=== PATIENT | male | born 1960 | race Caucasian/White ===

== ENCOUNTER → 2017-11-30 15:47 | Outpatient (CLI) | payer BC, SELFPAY ==
[2017-11-30 17:38] LABS: Volume,Semen 1.8 ml (2.0-5.0)
[2017-11-30 17:39] LABS: Motility Quality Moderate Progression (Mod-Rapid); PH,Semen 8.5 (7.3-8.3); Semen Viscosity Normal (Normal); Sperm Count 11 mil/mm3 (20-160); Sperm Motility 30 % (50-90); WBCs,Semen Small
[2017-11-30 18:35] LABS: Sperm Morphology Head Abnormality (Normal)
[2017-11-30 19:10] LABS: 3Hr Motility Quality Moderate Progression (Mod-Rapid); 3Hr Sperm Motility 10 % (50-60)
== END ==
PROVIDERS: PCP Family Medicine; Visit Provider Obstetrics & Gynecology
DX: Z31.41 Encounter for fertility testing (principal)
CPT/HCPCS: 89320

== ENCOUNTER → 2018-01-08 13:17 | Outpatient (CLI) | payer BC, SELFPAY ==
[2018-01-08 15:27] LABS: Prostate Specific Ag Screen 1.3 ng/mL (0.0-4.0)
[2018-01-09 08:30] LABS: LH 5.1 mIU/mL (1.7-8.6)
[2018-01-09 14:21] LABS: Prolactin 5.7 ng/mL (4.0-15.2)
[2018-01-11 14:59] LABS: Testosterone, Total, LC/MS 375.5 ng/dL (264.0-916.0); Testosterone,Free 3.3 pg/mL (7.2-24.0)
== END ==
PROVIDERS: Visit Provider Urology
DX: Z12.5 Encounter for screening for malignant neoplasm of prostate (principal); N40.0 Benign prostatic hyperplasia without lower urinary tract symptoms
CPT/HCPCS: 36415; 83001; 83002; 84146; 84402; 84403; G0103

== ENCOUNTER → 2019-06-05 09:01 | Outpatient (CLI) | payer BC, SELFPAY ==
--- NOTE | 2019-06-05 09:10 | XR_ITS ---
PROCEDURE: XR FOOT WT BEARING LT 3V CLINICAL INDICATION: post-op Follow-up surgery COMPARISON: XR FOOT LT MIN 3V from 05/04/2019 XR FOOT LT 2V from 05/08/2019 XR FOOT LT MIN 3V from 05/08/2019 FINDINGS: Status post ORIF 5th metatarsal fracture with lateral bone plate. There is good alignment of the fracture fragments with no significant displacement. The joint spaces are well-preserved. No significant degenerative/arthritic changes. No erosive changes evident. Other findings:None. IMPRESSION: Good alignment status post ORIF 5th metatarsal fracture Dictated by: Peter Torrez MD 06/05/2019 12:57 Electronically signed by Peter Torrez MD in [place] 06/05/2019 12:57
== END ==
PROVIDERS: PCP Family Medicine; Visit Provider Podiatrist
DX: Z98.890 Other specified postprocedural states (principal); S92.352D Displaced fracture of fifth metatarsal bone, left foot, subsequent encounter for fracture with routine healing; S92.902D Unspecified fracture of left foot, subsequent encounter for fracture with routine healing
CPT/HCPCS: 73630

== ENCOUNTER 2019-06-24 09:50 | Outpatient (RCR) | payer BC, SELFPAY ==
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
== END 2019-06-24 10:50 | disposition home or self-care (01) ==
LOC: PT 09:50
PROVIDERS: PCP Family Medicine; Visit Provider Podiatrist
DX: S92.352A Displaced fracture of fifth metatarsal bone, left foot, initial encounter for closed fracture (principal); Z98.890 Other specified postprocedural states
CPT/HCPCS: 97163

== ENCOUNTER → 2019-06-26 08:46 | Outpatient (CLI) | payer BC, SELFPAY ==
--- NOTE | 2019-06-26 08:54 | XR_ITS ---
PROCEDURE: XR FOOT WT BEARING LT 3V CLINICAL INDICATION: postop views, fracture follow up Follow-up fracture/ORIF COMPARISON: XR FOOT LT MIN 3V from 05/04/2019 XR FOOT LT 2V from 05/08/2019 XR FOOT LT MIN 3V from 05/08/2019 XR FOOT WT BEARING LT 3V from 06/05/2019 FINDINGS: Status post ORIF 5th metatarsal fracture with lateral bone plate transfixed with screws and 2 cerclage wires with good alignment of the fracture fragments. Fracture line is still visible. IMPRESSION: Good alignment status post ORIF 5th metatarsal fracture Dictated by: Peter Torrez MD 06/26/2019 09:30 Electronically signed by Peter Torrez MD in [place] 06/26/2019 09:30
== END ==
PROVIDERS: PCP Family Medicine; Visit Provider Podiatrist
DX: S92.902D Unspecified fracture of left foot, subsequent encounter for fracture with routine healing (principal); Z98.890 Other specified postprocedural states
CPT/HCPCS: 73630

== ENCOUNTER 2019-08-05 15:49 | Emergency (ER) | payer BC, SELFPAY ==
[2019-08-05 16:13] VITALS: BP 116/76; PULSE 57; RESP 16; TEMP 36.9; O2SAT 99; BMI 25.0
[2019-08-05 16:33] VITALS: BP 127/91; PULSE 58; RESP 18; TEMP 36.9; O2SAT 99; BMI 25.0
--- NOTE | 2019-08-05 16:42 | CT_ITS ---
PROCEDURE: CT HEAD/BRAIN WO CON CLINICAL INDICATION: lightheaded, confusion when reading earlier today COMPARISON: No exams were available for comparison TECHNIQUE: Axial images obtained. All CT scans at the facility use one or more dose reduction, viz: automated exposure control, ma/kV adjustment per patient size (including targeted exams where dose is matched to indication, i.e. head), or iterative reconstruction technique. FINDINGS: No midline shift, mass effect, intracranial hemorrhage, hydrocephalus, or extra-axial fluid collection is evident. There are scattered periventricular and subcortical areas of decreased attenuation consistent with ischemic gliotic change from microvascular disease. The calvarium has an unremarkable appearance. No mastoid effusion. No sinus air-fluid level. IMPRESSION: No acute intracranial finding Dictated by: Peter Torrez MD 08/05/2019 17:30 Electronically signed by Peter Torrez MD in [place] 08/05/2019 17:30
--- NOTE | 2019-08-05 16:42 | ECG_ITS ---
APPROVED REPORT Exam: Resting ECG HR:57 bpm ECG Measurements Heart Rate 57 AXES ID 144 P 26 QRSd 82 QRS 18 QT 422 T 37 QTc 410 <Conclusion> Sinus bradycardia Otherwise normal ECG Electronically signed by : J Carlos Hwang, 08/11/2019 17:16:44
[2019-08-05 17:09] LABS: Microscopic, Urine URINE MICROSCOPIC (MICROSCOPIC)
[2019-08-05 17:11] LABS: Appearance,Urine CLEAR (Clear); Bilirubin,Urine Negative (Negative); Blood, Urine Negative (Negative); Color,Urine YELLOW (Yellow); Glucose,Urine (UA) Negative (Negative); Ketones,Urine Negative (Negative); Leukocyte Esterase,Urine Negative (Negative); Nitrate,Urine Negative (Negative); Protein,Urine Negative (Negative); Urobilinogen,Urine 0.2 EU/dl (0.2)
[2019-08-05 17:14] LABS: Squamous Epithelial Cell,Urine Occasional #/hpf (0-5); WBC,Urine Occasional #/hpf (0-3)
[2019-08-05 17:16] LABS: Bacteria,Urine Trace /lpf
[2019-08-05 17:20] VITALS: BP 123/78; PULSE 55; RESP 20; O2SAT 99
[2019-08-05 17:26] LABS: Basophils % 0.5 % (0.1-2.0); Eosinophils # 0.2 K/mm3 (0.0-0.4); Lymphocytes # 2.1 K/mm3 (0.7-4.5); Lymphocytes % 34.5 % (10-50); Mean Corpuscular HGB Conc 34.9 g/dL (31.8-35.4); Mean Corpuscular Hemoglobin 31.7 pg (27.0-31.2); Mean Corpuscular Volume 90.7 fl (80-94); Mean Platelet Volume 7.5 fl (7.4-10.4); Monocytes # 0.6 K/mm3 (0.1-1.0); Monocytes % 8.9 % (1.7-9.3); Neutrophils # 3.3 K/mm3 (1.8-7.8); Neutrophils % 53.1 % (37.0-80.0); Platelet Count 234 K/mm3 (142-424); Red Blood Count 4.74 M/mm3 (4.60-6.20); Red Cell Distribution Width 13.6 % (11.5-17.5); White Blood Count 6.1 K/mm3 (4.8-10.8)
[2019-08-05 17:31] LABS: Chloride 102 mmol/L (98-107); Potassium 4.6 mmoL/L (3.5-5.1); Sodium 138 mmol/L (136-145)
[2019-08-05 17:33] LABS: Alanine Aminotransferase 20 U/L (12-78); Aspartate Amino Transferase 28 U/L (17-59); Blood Urea Nitrogen 11 mg/dl (9-20); Creatinine Clearance Estimated 97 mL/min (50-200); Estimated Glomerular Filt Rate 86 ml/min (>60); GFR (African American) 104 ML/MIN (>60)
[2019-08-05 17:34] LABS: Albumin Level 4.4 g/dl (3.5-5.0); Albumin/Globulin Ratio 1.5 (1.1-1.8); Alkaline Phosphatase 74 U/L (38-126); Anion Gap 9.6 mEq/L (5-15); Bilirubin,Total 0.7 mg/dl (0.2-1.3); Calcium 9.2 mg/dl (8.4-10.2); Carbon Dioxide 31 mmol/L (22.0-30.0); Globulin 2.9 g/dL (1.3-3.2); Glucose 97 mg/dl (74-100); Total Protein,Serum 7.3 g/dl (6.3-8.2)
[2019-08-05 17:58] LABS: Troponin I < 0.01 ng/ml (0.00-0.034)
--- NOTE | 2019-08-05 18:44 | HMH.EDDIZZ ---
ED Disposition Clinical Impression: Episodic lightheadedness, Palpitations, Sinusitis, acute maxillary Disposition: Home, Self-Care Condition on Discharge: Good Instructions: Sinusitis Additional Instructions: Please follow-up with Dr. Carter to get an outpatient stress test done in the next week. Prescriptions: Amoxicillin [Amoxicillin 875MG Tab] 875 mg PO Q12H 10 Days #20 tab Transmission Status: Pending to [facility]/pharmacy #[id number] Fluticasone Propionate [Flonase 50mcg nasal spray 16gm] 1 spr NS BID 30 Days #60 bottle Transmission Status: Pending to [facility]/pharmacy #[id number] methylPREDNISolone [Medrol 4mg tab] 4 mg PO DIRECTED #21 tab Transmission Status: Pending to [facility]/pharmacy #[id number] Referrals: J Carlos Carter MD [Primary Care Provider] - - Critical Care Critical Care Time: No Attestation: On 08/05/19, the high probability of a clinically significant, sudden or life threatening deterioration of the following system(s) required my full and direct attention, intervention and personal management. The time I documented below is in addition to time spent performing reported procedures but includes the following listed in this critical care notation. Medical Decision Making - Medical Records Medical records reviewed: Yes: I reviewed the patient's medical records. - Charlie Inquiry Pt receiving controlled substance: No Vital Signs: 08/05/19 16:13 08/05/19 16:33 08/05/19 17:20 Temperature 98.4 F 98.4 F Temperature Source Oral Oral Pulse Rate [Right Brachial] 57 L 58 L 55 L Respiratory Rate 16 18 20 Blood Pressure [Right Arm] 116/76 127/91 H 123/78 Blood Pressure Mean [Right Arm] 89 103 93 Blood Pressure Source [Right Arm] Automatic Cuff Automatic Cuff Automatic Cuff Blood Pressure Position [Right Arm] Sitting Sitting Sitting 02 Sat by Pulse Oximetry 99 99 99 Oxygen Delivery Method Room Air Room Air Room Air - Lab Data Lab results reviewed: Yes: I reviewed the patient's lab results. Lab Results 08/05/19 16:45: Urine Color Yellow, Urine Appearance Clear, Urine pH 6.0, Ur Specific [place] 1.010, Urine Protein Negative, Urine Glucose (UA) Negative, Urine Ketones Negative, Urine Blood Negative, Urine Nitrate Negative, Urine Bilirubin Negative, Urine Urobilinogen 0.2, Ur Leukocyte Esterase Negative, Urine WBC Occasional, Ur Squamous Epith Cells Occasional, Urine Bacteria Trace 08/05/19 17:15: WBC 6.1, RBC 4.74, Hgb 15.0, Hct 43.0, MCV 90.7, MCH 31.7 H, MCHC 34.9, RDW 13.6, Plt Count 234, MPV 7.5, Neut % (Auto) 53.1, Lymph % (Auto) 34.5, [place] % (Auto) 8.9, Eos % (Auto) 3.0, Baso % (Auto) 0.5, Neut # (Auto) 3.3, Lymph # (Auto) 2.1, [place] # (Auto) 0.6, Eos # (Auto) 0.2, Baso # (Auto) 0.0 08/05/19 17:15: Sodium 138, Potassium 4.6, Chloride 102, Carbon Dioxide 31 H, Anion Gap 9.6, BUN 11, Creatinine 0.90, Estimated Creat Clear 97, Estimated GFR 86, Est GFR ( Amer) 104, Glucose 97, Calcium 9.2, Total Bilirubin 0.7, AST 28, ALT 20, Alkaline Phosphatase 74, Troponin I < 0.01, Total Protein 7.3, Albumin 4.4, Globulin 2.9, Albumin/Globulin Ratio 1.5 Result diagrams: 08/05/19 17:15 08/05/19 17:15 Orders (Tests/Meds): ORDERS Category Date Time Status Troponin I Q3H Lab 08/05/19 19:45 Ordered Troponin I Q3H Lab 08/05/19 22:45 Ordered - Radiology Data #1 Image(s): Chest Preliminary Findings: Normal/NAD - CT Data CT Scan: Head Time Received: 18:[address] Reviewed: Yes: I have viewed the radiologist's interpretation Preliminary Findings: Normal/NAD - ECG Data Tracing #1 I reviewed this ECG and interpreted as documented below: Normal Sinus Rhythm: Yes Medical Decision Narrative: Strongly feel that patient does have an acute maxillary sinusitis given the fact he had poor transillumination of the sinuses and pain upon palpation. This would explain possibly the lightheadedness and a sense of not wellbeing. Given the fact his CT of his head and chest x-ray cardiac enzymes CBC and CMP and
[2019-08-05 18:46] VITALS: BP 122/82; PULSE 56; RESP 18; O2SAT 100
[2019-08-05 19:01] VITALS: BP 134/78; PULSE 79; RESP 16; TEMP 36.7; O2SAT 98
== END 2019-08-05 19:01 | disposition home or self-care (01) ==
LOC: UTC 15:51 → ER 16:21
PROVIDERS: Emergency Provider Family Medicine; PCP Family Medicine
DX: J01.00 Acute maxillary sinusitis, unspecified (principal); I10 Essential (primary) hypertension; K51.90 Ulcerative colitis, unspecified, without complications; Z79.899 Other long term (current) drug therapy; Z87.891 Personal history of nicotine dependence
CPT/HCPCS: 70450; 80053; 81001; 84484; 85025; 93005; 99284

== ENCOUNTER → 2019-08-07 08:55 | Outpatient (CLI) | payer BC, SELFPAY ==
--- NOTE | 2019-08-07 08:56 | XR_ITS ---
PROCEDURE: XR FOOT WT BEARING LT 3V CLINICAL INDICATION: postop view, fracture f/u Follow-up fracture COMPARISON: XR FOOT LT 2V from 05/08/2019 XR FOOT LT MIN 3V from 05/08/2019 XR FOOT WT BEARING LT 3V from 06/05/2019 XR FOOT WT BEARING LT 3V from 06/26/2019 FINDINGS: Post ORIF 5th metatarsal fracture with lateral bone plate and 2 cerclage wires. Fracture line is less visible consistent with healing. There is good alignment with no other significant anomalies. The joint spaces are well-preserved. No significant degenerative/arthritic changes. No erosive changes evident. Other findings:None. IMPRESSION: Good alignment status post ORIF 5th metatarsal fracture Dictated by: Peter Torrez MD 08/07/2019 15:52 Electronically signed by Peter Torrez MD in [place] 08/07/2019 15:52
== END ==
PROVIDERS: PCP Family Medicine; Visit Provider Podiatrist
DX: Z98.890 Other specified postprocedural states (principal); S92.352D Displaced fracture of fifth metatarsal bone, left foot, subsequent encounter for fracture with routine healing
CPT/HCPCS: 73630

== ENCOUNTER → 2019-09-03 06:09 | Outpatient (CLI) | payer BC, SELFPAY ==
--- NOTE | 2019-09-03 | CA_ITS ---
APPROVED REPORT Exam: Exercise Treadmill Technologist: Sera Rothman Ht: 5 ft 10 in Wt: 170 lbs BSA: 1.95 m2 HR: 48 bpm BP: 140/76 mmHg Indications: Syncope, Palpitations Medical History Medications: FluTICASONE,,,,, MethylpredNISOLONE,,,,, MesALAMINE,,,,, Stress Test Details Test: Demetrius HR Resting HR: 54 bpm Max Heart Rate (APMHR): 159 bpm Max HR Achieved: 152 bpm Target HR (85% APMHR): 135 bpm % of APMHR: 95 Recovery HR: 71 bpm BP Resting BP: 140.0/76.0 mmHg Max BP: 165.0/75.0 mmHg Recovery BP: 133.0/88.0 mmHg ECG Clinical Exercise duration: 11:00 min Highest Stage Achieved: Exercise capacity: 12.8 METs Stress ECG Conclusion Resting ECG: Marked sinus bradycardia, otherwise normal Patient exercised 11:00 on Demetrius Protocol. Test stopped due to shortness of air, fatigue. Symptoms: No chest pain. Arrhythmias/Ectopy: Occasional PAC. Frequent PVCs. Frequent multi-focal ventricular ectopy over 10 second period in stage 4 with ventricular triplets, couplets and 4 beat evert of ventricular tachycardia. ST-T Changes: Allowing for motion artifact, the ST response to exercise appears within normal. Conclusion: Short nonsustained runs of ventricular tachycardia in stage 4. No ischemic changes or chest pain. Myoview images reported separately. Electronically signed by : Mannie Valerio, 09/04/2019 12:14:16
--- NOTE | 2019-09-03 | NM_ITS ---
APPROVED REPORT Exam: Nuclear Stress Test Indication: Palpitations, Syncope, Fatigue, Former tobacco use Patient Location: Outpatient Stress Tech: Sera Rothman NM Tech:Loreto To, ARRT, RT (R)(N) Ht: 5 ft 10 in Wt: 170 lbs HR: 48 bpm BP: 140/76 mmHg BSA: 1.95 m2 BMI: 24.3 History: Palpitations, Syncope, Fatigue, Former tobacco use Procedure: Patient exercised on Demetrius protocol 11:00 minutes and sec, resting heart rate 48 bpm, resting blood pressure 140/76 mmHg, with exercise maximum heart rate achived was 152 bpm which is Greater than 85 % of the maximum predicted heart rate and blood pressure was 165/75 mmHg. Test was stopped due to SOA and fatigue. Patient has Good exercise capacity, achieved 12.8 METs of workload on treadmill, the blood pressure response to exercise was Adequate. Electrocardiogram Resting electrocardiogram shows sinus rhythm, with exercise there is less than 1.[address] segment depression noted from the baseline EKG, 4 beat run of nonsustained VT seen at stage IV of the exercise patient was asymptomatic with this. The EKG portion of the exercise Myoview is negative for ischemia. Cardiac Stress and Resting SPECT Images: Cardiac Stress and Resting SPECT images were obtained using technetium 99m Myoview 29.6 mCi stress and 10.28 mCi at rest. Gated SPECT for the analysis of segmental wall motion and calculation of the ejection fraction also done. Cardiac stress and resting SPECT images show a mild fixed defect anteroapically with normal contractility gated SPECT is likely secondary to soft tissue attenuation, no reversible ischemia seen, computer derived ejection fraction is 60% with no regional wall motion abnormality, right ventricle is normal size and contractility. Conclusion: 1. The EKG portion of the exercise Myoview is negative for ischemia, patient has good exercise capacity achieved 12.8 mets of workload on treadmill, the blood pressure response to exercise was adequate, there was no exercise-induced chest discomfort. Patient has nonsustained VT in stage IV of exercise stress test with no symptoms. 2. No scintigraphic evidence of reversible ischemia seen, computer derived ejection fraction is 60% with no regional wall motion abnormality, right ventricle is normal size and contractility. 3. Likely normal exercise Myoview study. Electronically signed by : Mannie Valerio, 09/04/2019 13:30:24
--- NOTE | 2019-09-03 07:09 | HMH.ITSHM ---
Current Home Medications as stated by this patient Venus Ferrer or patient access representative. []MULTIVITAMIN MESALOMANE VITAMIN D3 VITAMIN B12 VITAMIN C
--- NOTE | 2019-09-03 08:57 | CA_ITS ---
APPROVED REPORT Table Assembler Metal: WILBER Laterality: Bilateral Indications: syncope, dizziness Doppler Spectral Velocity Analysis ECA (R) 105.90/19.30 cm/s ECA (L) 76.40/18.60 cm/s dICA (R) 85.70/40.50 cm/s dICA (L) 66.80/29.50 cm/s [place] (R) 88.60/43.30 cm/s [place] (L) 89.90/44.30 cm/s pICA (R) 97.00/43.70 cm/s pICA (L) 69.30/30.20 cm/s dCCA (R) 71.90/23.80 cm/s dCCA (L) 72.60/24.40 cm/s pCCA (R) 96.30/27.60 cm/s pCCA (L) 123.30/41.40 cm/s Vert (R) 59.10/25.00 cm/s Vert (L) 46.20/21.20 cm/s ICA/CCA 1.35 ICA/CCA 1.24 Findings Duplex evaluation demonstrates stenosis of the right proximal internal carotid artery <20% with PSV <140 cm/sec, EDV <100 cm/sec, and IC/CC Ratio <4.0.Duplex evaluation demonstrates stenosis of the left proximal internal carotid artery <20% with PSV <140 cm/sec, EDV <100 cm/sec, and IC/CC Ratio <4.0. Conclusion Duplex evaluation demonstrates stenosis of the right proximal internal carotid artery <20% with PSV <140 cm/sec, EDV <100 cm/sec, and IC/CC Ratio <4.0.Duplex evaluation demonstrates stenosis of the left proximal internal carotid artery <20% with PSV <140 cm/sec, EDV <100 cm/sec, and IC/CC Ratio <4.0. Electronically signed by : Lu Horne, 09/04/2019 09:00:21
== END ==
PROVIDERS: PCP Family Medicine; Visit Provider Family Medicine
DX: R55 Syncope and collapse (principal); G90.01 Carotid sinus syncope
CPT/HCPCS: 78452; 93017; 93880; A9502

== ENCOUNTER → 2019-09-06 09:34 | Outpatient (CLI) | payer BC, SELFPAY | PROVIDERS: PCP Family Medicine; Referring Provider Family Medicine; Visit Provider Family Medicine | DX: I47.2 Ventricular tachycardia (principal) | CPT/HCPCS: 93270 ==

== ENCOUNTER → 2019-09-23 14:03 | Outpatient (CLI) | payer BC, SELFPAY ==
--- NOTE | 2019-09-23 | CA_ITS ---
APPROVED REPORT EXAM: Comprehensive 2D, Doppler, and color-flow Echocardiogram [employer] Tower: Mercedes Moya CRT Ht: 5 ft 10 in Wt: 170lbs BSA: 1.95 BP: 120/80 mmHg Indications: Palpitations 2D Dimensions LVOT 2.09 cm (M/F) 1.5-2.5 M-Mode Dimensions RVDd 3.07 cm (0.9-2.6) LVDd 5.14 cm (3.5-5.7) LVDs 3.07 cm (3.5-5.7) IVSd 1.54 cm (0.6-1.1) PWd 0.86 cm (0.6-1.1) EF (Teich) 70.70% FS 40.30% EDV (Teich) 126.10 mL ESV (Teich) 37.00 mL LV Diastology E/A Ratio 0.76 Mitral Valve MV A Velocity 71.00 (40-130 cm/s) Left Ventricle Left atrium is mildly enlarged, left ventricle is normal size, left ventricle wall thickness is upper limit of the normal, there is preserved left ventricular systolic function, visually estimated ejection fraction 55% with no regional wall motion abnormality, grade 1 diastolic dysfunction seen without tissue Doppler evidence of raise left atrial pressure. Right Ventricle Right atrium and right ventricular relatively normal size and function. Aortic Valve Aortic valve is minimally thickened and fibrosed. There is no aortic stenosis or aortic insufficiency. Mitral Valve Mitral valve is grossly normal, there is mild mitral regurgitation. Tricuspid Valve Tricuspid valve is grossly normal, there is mild tricuspid regurgitation, tricuspid regurgitation jet velocity is inadequate for calculation of the right ventricular systolic pressure. Pulmonic Valve Pulmonic valve is poorly visualized. Great Vessels Aortic root is normal size. Pericardium No significant pericardial effusion noted. Conclusion 1. Normal left ventricular size, preserved left ventricular systolic function, visually estimated ejection fraction 55% with no regional wall motion abnormality, grade 1 diastolic dysfunction seen without tissue Doppler evidence of raise left atrial pressure. 2. Mild mitral and tricuspid regurgitation. 3. No significant pericardial effusion noted. Electronically signed by : Mannie Valerio, 09/24/2019 05:47:00
== END ==
PROVIDERS: PCP Family Medicine; Visit Provider Nurse Practitioner
DX: R00.2 Palpitations (principal); G90.01 Carotid sinus syncope
CPT/HCPCS: 93306

== ENCOUNTER → 2019-10-23 16:11 | Outpatient (CLI) | payer BC, SELFPAY ==
--- NOTE | 2019-10-23 | XR_ITS ---
PROCEDURE: XR CHEST PORTABLE CLINICAL HISTORY: Covid positive COMPARISON: PA and lateral chest 07/16/2013 FINDINGS: The cardiomediastinal silhouette and pulmonary vascularity are within normal limits. The lungs are clear without infiltrates, suspicious nodules, or pleural effusions. No acute bony abnormalities. There is minor degenerate change of both AC joints. There is slightly high-riding humeral heads bilaterally and there are bilateral down-sloping acromion processes suggesting predisposition to impingement syndrome. IMPRESSION: No acute findings. Dictated by: Dr. Donnie Erwin MD 10/24/2019 09:41 Dr. Donnie Erwin MD in [place] 10/24/2019 09:41
[2019-10-23 16:51] LABS: Basophils # 0.1 K/mm3 (0-0.2); Basophils % 1.9 % (0.1-2.0); Eosinophils % 0.6 % (0.1-12.0); Hematocrit 43.1 % (42.0-52.0); Hemoglobin 15.4 g/dL (14.1-18.0); Lymphocytes # 0.7 K/mm3 (0.7-4.5); Lymphocytes % 11.8 % (10-50); Mean Corpuscular HGB Conc 35.8 g/dL (31.8-35.4); Mean Corpuscular Hemoglobin 31.5 pg (27.0-31.2); Mean Platelet Volume 7.4 fl (7.4-10.4); Monocytes # 0.8 K/mm3 (0.1-1.0); Monocytes % 13.8 % (1.7-9.3); Neutrophils % 71.9 % (37.0-80.0); Platelet Count 205 K/mm3 (142-424); Red Cell Distribution Width 13.7 % (11.5-17.5); White Blood Count 5.6 K/mm3 (4.8-10.8)
[2019-10-26 13:14] LABS: Covid-19 Nasal PCR Sendout Lex POSITIVE
== END ==
PROVIDERS: PCP Family Medicine; Visit Provider Family Medicine
DX: Z20.828 Contact with and (suspected) exposure to other viral communicable diseases (principal); U07.1 COVID-19
CPT/HCPCS: 36415; 71045; 85025; U0004

== ENCOUNTER 2019-11-15 09:05 | Emergency (ER) | payer BC, SELFPAY ==
[2019-11-15 09:15] VITALS: BP 155/91; PULSE 52; RESP 18; TEMP 36.4; O2SAT 100; BMI 25.1
--- NOTE | 2019-11-15 09:32 | CT_ITS ---
Procedure: CT ABDOMEN PELVIS WO CON Referring Doctor: Pankaj Phelan Patient Age:59Y CLINICAL INDICATION: R flank and R lower abd pain With nausea vomiting diarrhea. Symptoms started 2 hours ago COMPARISON: No exams were available for comparison TECHNIQUE: Helical axial images obtained with sagittal and coronal reformats.. No oral nor IV contrast utilized all CT scans at the facility use one or more dose reduction, viz: automated exposure control, ma/kV adjustment per patient size (including targeted exams where dose is matched to indication, i.e. head), or iterative reconstruction technique. FINDINGS: Lower thorax: No acute finding lung bases clear. Heart normal size. Small hiatal hernia noted tract RIGHT OBSTRUCTIVE UROPATHY right hydronephrosis with dilated ureter down right ureteral stone to the right of L4.. This stone projected just below the right transverse process of L4 vertebral body on packaging line attendant view. It measures just over 6 mm transverse dimension x 4 mm AP X 6.5 mm height (coronal image 38 axial image 51) There is moderate dilatation of the ureter above this with some [id number] hydronephrosis and stranding about the right ureter reflecting the obstructive uropathy and pelvicaliceal backflow. This periureteral stranding along the adjacent IVC. Slight stranding extends towards the head of the pancreas-but I favor this stranding at the head of the pancreas most likely is related the right ureteral obstructive process in periureteral stranding. Nonetheless, warrants correlation with amylase and lipase with this observation. Right kidney: Also contains a 2 mm nonobstructive calculus at upper pole and mildly hyperdense renal pyramids which can reflect tendency to form stones. . Small renal cyst 12 mm cyst exophytic cyst off the upper pole left kidney with a smaller 1 cm cyst off the anterior aspect upper pole sagittal image 32 Left kidney.: Nonobstructive near mm X 3 mm calculus midportion left kidney and question of a tiny 1 mm calculus at the lower pole calyx coronal image 43 There is also 12 mm cyst seen towards upper pole left kidney fluid density (axial image 27 coronal image 48) -----abdomen -------- Liver: No masses. No biliary dilatation. Gallbladder: Nondistended. No radio opaque stones. Common duct unremarkable Pancreas: No masses. Spleen: unremarkable Adrenals: unremarkable Kidneys/ureters: unremarkable PELVIS: Prostate slightly enlarged 5.2 cm diameter with some central calcifications Bladder: Nondistended. No obvious stones or masses. Upper normal wall thickness No free fluid. Suggestion of some laxity inguinal ring bilaterally with slight generous fat tracking along inguinal canal bilaterally but but no bowel loops. GI tract: ------ Small hiatal hernia noted Proximal Small Bowel Loops are slightly dilated. The most evident dilated proximal small bowel loop just to the left of midline below the stomach measure up to 34 mm diameter.. (Coronal image 15. And also seen on packaging line attendant view.) I suspect this reflects a localized ileus but again there is some subtle stranding in the proximal mesenteric and retroperitoneal which warrants correlation with amylase and lipase. A in the distal small bowel there is some stool-like material which in this setting again likely reflect mild ileus with some impaired peristalsis. Large bowel.. Moderate stool throughout the colon most evident at the descending colon... Upper normal wall thickness at the right colon most likely reflects lack of distension appendix visualized. No appendicitis. Minimal radiopaque within appendix reflecting barium or small appendiculith Peritoneum: No abnorm
--- NOTE | 2019-11-15 09:34 | PC.NURSE ---
pt reports unable to void at this time
--- NOTE | 2019-11-15 09:34 | HMH.EDGENADL ---
ED Disposition Clinical Impression: Ureterolithiasis Disposition: Home, Self-Care Condition on Discharge: Fair Instructions: DI for Acute Pain -- Adult Prescriptions: Hydrocodone/Acetaminophen [Hydrocodone-Acetamin 5-325 mg] 1 each PO Q6HP PRN #12 tab PRN Reason: pain Prescription Printed Tamsulosin HCl 0.4 mg PO DAILY #14 cap Transmission Status: Pending to [facility]/pharmacy #[id number] Referrals: J Carlos Carter MD [Primary Care Provider] - - Critical Care Critical Care Time: No Attestation: On 11/15/19, the high probability of a clinically significant, sudden or life threatening deterioration of the following system(s) required my full and direct attention, intervention and personal management. The time I documented below is in addition to time spent performing reported procedures but includes the following listed in this critical care notation. Medical Decision Making - Medical Records Medical records reviewed: Yes: I reviewed the patient's medical records. - Charlie Inquiry Pt receiving controlled substance: Yes Charlie was queried for this patient: Yes Reference #:: [id number] Risks and benefits of using a controlled substance: were discussed with pt by me Vital Signs: 11/15/19 09:15 11/15/19 09:56 11/15/19 10:26 Temperature 97.5 F L Temperature Source Oral Pulse Rate [Right Radial] 52 L 47 L 44 L Respiratory Rate 18 18 Blood Pressure [Right Arm] 155/91 H 143/73 H 128/62 Blood Pressure Mean [Right Arm] 112 96 84 Blood Pressure Source [Right Arm] Automatic Cuff Automatic Cuff Blood Pressure Position [Right Arm] Sitting Sitting Sitting 02 Sat by Pulse Oximetry 100 100 Oxygen Delivery Method Room Air Room Air 11/15/19 10:30 Temperature Temperature Source Pulse Rate [Right Radial] 41 L Respiratory Rate 18 Blood Pressure [Right Arm] 128/62 Blood Pressure Mean [Right Arm] 84 Blood Pressure Source [Right Arm] Automatic Cuff Blood Pressure Position [Right Arm] Sitting 02 Sat by Pulse Oximetry 99 Oxygen Delivery Method - Lab Data Lab Results 11/15/19 09:25: WBC 4.9, RBC 5.01, Hgb 15.0, Hct 45.9, MCV 91.6, MCH 29.9, MCHC 32.6, RDW 13.3, Plt Count 293, MPV 7.6, Neut % (Auto) 47.8, Lymph % (Auto) 39.4, [place] % (Auto) 9.6 H, Eos % (Auto) 2.7, Baso % (Auto) 0.5, Neut # (Auto) 2.4, Lymph # (Auto) 1.9, [place] # (Auto) 0.5, Eos # (Auto) 0.1, Baso # (Auto) 0.0 11/15/19 09:25: Sodium 141, Potassium 4.4, Chloride 105, Carbon Dioxide 26, Anion Gap 14.4, BUN 15, Creatinine 0.90, Estimated Creat Clear 85, Estimated GFR 86, Est GFR ( Amer) 104, Glucose 138 H, Calcium 9.3, Total Bilirubin 0.6, AST 33, ALT 29, Alkaline Phosphatase 88, Total Protein 7.3, Albumin 4.7, Globulin 2.6, Albumin/Globulin Ratio 1.8 11/15/19 09:25: Lipase 197 Result diagrams: 11/15/19 09:25 11/15/19 09:25 Orders (Tests/Meds): ED MEDICATIONS Generic Name Dose Route Start Last Admin Trade Name Freq PRN Reason Stop Dose Admin Sodium Chloride 1,000 mls @ 999 mls/hr 11/15/19 09:45 11/15/19 09:34 Sod Chlor 0.9% 1000ml Bag IV 11/15/19 10:45 999 mls/hr .Q1H1M CELSO Administration Discontinued Medications Generic Name Dose Route Start Last Admin Trade Name Freq PRN Reason Stop Dose Admin Hydromorphone HCl 0.5 mg 11/15/19 10:44 11/15/19 10:45 Hydromorphone 2mg/Ml Syringe IV 11/15/19 10:45 0.5 mg ONCE ONE Administration Ketorolac Tromethamine 30 mg 11/15/19 09:32 11/15/19 09:34 Ketorolac 30mg/Ml Vial IV 11/15/19 09:33 30 mg ONCE ONE Administration Morphine Sulfate 4 mg 11/15/19 10:17 11/15/19 10:19 Morphine 4mg/Ml Syringe IV 11/15/19 10:18 4 mg ONCE ONE Administration Ondansetron HCl 4 mg 11/15/19 09:32 11/15/19 09:34 Ondansetron 4mg/2ml Vial IV 11/15/19 09:33 4 mg ONCE ONE Administration Ondansetron HCl 4 mg 11/15/19 09:41 11/15/19 09:42 Ondansetron 4mg/2ml Vial IV 11/15/19 09:42 4 mg ONCE ONE Administration Promethazine HCl 12.5 mg 11/15/19 10:19 11/14
[2019-11-15 09:38] LABS: Basophils % 0.5 % (0.1-2.0); Eosinophils # 0.1 K/mm3 (0.0-0.4); Eosinophils % 2.7 % (0.1-12.0); Hematocrit 45.9 % (42.0-52.0); Lymphocytes # 1.9 K/mm3 (0.7-4.5); Lymphocytes % 39.4 % (10-50); Mean Corpuscular HGB Conc 32.6 g/dL (31.8-35.4); Mean Corpuscular Hemoglobin 29.9 pg (27.0-31.2); Mean Corpuscular Volume 91.6 fl (80-94); Mean Platelet Volume 7.6 fl (7.4-10.4); Monocytes # 0.5 K/mm3 (0.1-1.0); Monocytes % 9.6 % (1.7-9.3); Neutrophils # 2.4 K/mm3 (1.8-7.8); Neutrophils % 47.8 % (37.0-80.0); Platelet Count 293 K/mm3 (142-424); Red Blood Count 5.01 M/mm3 (4.60-6.20); Red Cell Distribution Width 13.3 % (11.5-17.5); White Blood Count 4.9 K/mm3 (4.8-10.8)
[2019-11-15 09:40] LABS: Chloride 105 mmol/L (98-107); Potassium 4.4 mmoL/L (3.5-5.1); Sodium 141 mmol/L (136-145)
[2019-11-15 09:43] LABS: Alanine Aminotransferase 29 U/L (12-78); Albumin Level 4.7 g/dl (3.5-5.0); Albumin/Globulin Ratio 1.8 (1.1-1.8); Alkaline Phosphatase 88 U/L (38-126); Anion Gap 14.4 mEq/L (5-15); Aspartate Amino Transferase 33 U/L (17-59); Bilirubin,Total 0.6 mg/dl (0.2-1.3); Blood Urea Nitrogen 15 mg/dl (9-20); Calcium 9.3 mg/dl (8.4-10.2); Carbon Dioxide 26 mmol/L (22.0-30.0); Creatinine Clearance Estimated 85 mL/min (50-200); Estimated Glomerular Filt Rate 86 ml/min (>60); GFR (African American) 104 ML/MIN (>60); Globulin 2.6 g/dL (1.3-3.2); Glucose 138 mg/dl (74-100); Lipase 197 U/L (23-300); Total Protein,Serum 7.3 g/dl (6.3-8.2)
[2019-11-15 09:56] VITALS: BP 143/73; PULSE 47; RESP 18; O2SAT 100
--- NOTE | 2019-11-15 10:16 | PC.NURSE ---
pt return from CT
[2019-11-15 10:26] VITALS: BP 128/62; PULSE 44
[2019-11-15 10:30] VITALS: BP 128/62; PULSE 41; RESP 18; O2SAT 99
[2019-11-15 11:07] VITALS: BP 97/54; PULSE 52; PULSE 53; RESP 17; RESP 18; TEMP 36.4; O2SAT 99
== END 2019-11-15 11:13 | disposition home or self-care (01) ==
PROVIDERS: Emergency Provider Emergency Medicine; PCP Family Medicine
DX: N20.1 Calculus of ureter (principal); Z79.899 Other long term (current) drug therapy; Z87.891 Personal history of nicotine dependence
CPT/HCPCS: 74176; 80053; 83690; 85025; 96365; 96375; 96376; 99283; J2405

== ENCOUNTER → 2019-12-03 08:24 | Outpatient (CLI) | payer BC, SELFPAY ==
--- NOTE | 2019-12-03 08:24 | CT_ITS ---
PROCEDURE: CT CHEST WO CON CLINICAL INDICATION: recent covid Former smoker COMPARISON: CR XR CHEST PORTABLE from 10/23/2019 TECHNIQUE: Axial images obtained with sagittal and coronal reformats. All CT scans at the facility use one or more dose reduction, viz: automated exposure control, ma/kV adjustment per patient size (including targeted exams where dose is matched to indication, i.e. head), or iterative reconstruction technique. FINDINGS: HEART AND MEDIASTINAL STRUCTURES: Unremarkable except for mild coronary artery calcification. LUNGS AND PLEURAL SPACES: The lung ledesma are somewhat hyperexpanded and appear clear of infiltrate. There is no pleural fluid. There are calcified subcarinal nodes. BONY STRUCTURES: No acute bony abnormalities apparent. There are mild multilevel degenerate changes upper and midthoracic spine. UPPER ABDOMEN: There are 2 tiny nodular lesions arising from upper pole right kidney probably representing small complex or and/or hemorrhagic cysts, the largest measures 1 cm in size the other 0.5 cm. ADDITIONAL FINDINGS: No other significant abnormalities. IMPRESSION: Mild COPD, no acute cardiopulmonary disease seen Dictated by: Dr. Donnie Erwin MD 12/03/2019 09:23 Dr. Donnie Erwin MD in [place] 12/03/2019 09:23
== END ==
PROVIDERS: PCP Family Medicine; Visit Provider Internal Medicine Cardiovascular Disease
DX: Z86.19 Personal history of other infectious and parasitic diseases (principal)
CPT/HCPCS: 71250

== ENCOUNTER → 2020-01-21 10:04 | Outpatient (CLI) | payer BC, SELFPAY ==
[2020-01-21 12:25] LABS: Coronavirus 19 IgG Antibody Positive (Negative); Coronavirus 19 IgM Antibody Negative (Negative)
== END ==
PROVIDERS: Visit Provider Internal Medicine Gastroenterology
DX: Z01.818 Encounter for other preprocedural examination (principal)
CPT/HCPCS: 36415; 86328

== ENCOUNTER 2020-01-23 06:56 | Day surgery (SDC) | payer BC, SELFPAY ==
[2020-01-20 08:51] VITALS: BMI 24.3
[2020-01-23 07:15] VITALS: BP 112/69; PULSE 65; RESP 18; TEMP 36.3; O2SAT 98
--- NOTE | 2020-01-23 07:35 | HMH.ANESCL ---
[facility] Anesthesia Checklist - Patient Identification Patient Identification: Arm Band, Verbal (Name & ) - Structural Data Admitted From: Home Planned Operative Procedure/s: Colonoscopy Consent for Planned Operative Procedure(s) Verified: Yes Verified Documents: Surgical Consent, History and Physical - NPO Status Verified Time NPO: 00:00 - Chart Verification Results Verified: None - Additional verifications Anesthesia Reactions: No Hx Blood Transfusions: No Blood Transfusion Reaction: No - Airway Assessment C-Spine Mobility Assessed: Yes TMJ Mobility Assessed: Yes Dentition: Good Dentition - Neurological Assessment Level of Consciousness: Awake, Alert, Appropriate, Follows Commands Hx Seizures: No Numbness or tingling in extremities: No - Anesthesia Plan Anesthesia Risk discussed: Yes Anesthesia Plan: Verified ASA Class: II Anesthesia Type: MAC [facility] History I have reviewed the patient's past medical history: Yes Medical History: Reports:: Arrhythmia, Hyperlipidemia, Hypertension, Kidney Stones Denies:: Cancer, Diabetes Mellitus Type 1, Diabetes Mellitus Type 2, Internal Pacemaker, MRSA, Seizures *Have you ever received a pneumonia vaccine?: No *Have you received a flu vaccine this season?: Yes Other Medical History: Reports: Other. Denies: Blood Transfusion Reaction Comment:: ulercative colits Anesthesia experience/problems:: None Other Surgeries: Yes: Colonoscopy. No: Pacemaker Amputation: No Fractures: Yes - *Social History Last grade of school completed: Advanced degree Smoking Status: Former smoker Tobacco Type: cigarettes # Packs/Day (cigarettes): 1 #Yrs smoked (if former smoker): 40 Alcohol Intake: never Substance Use Type: denies use, other *Occupational Status:: retired Housing: house Household Members: spouse *Travel in the last 8 weeks: None Family Hx:: Stroke
--- NOTE | 2020-01-23 08:08 | HMH.PROC ---
[facility] Procedure Note Procedure Note:: Colonoscopy Procedure Report: Colonoscopy with cold biopsies Endoscopist: Mj Woo II, MD Referring physician: J Carlos Carter MD Date of Procedure: January 23, 2020 Equipment: Olympus 180 variable stiffness pediatric colonoscope Sedation: MAC sedation Indication: Mr. Ferrer is a 59-year-old gentleman who is here for follow-up screening colonoscopy. He does have a history of ulcerative colitis diagnosed in 1980. He has been seen by me in the past but more recently had been followed by the [facility]. He had a colonoscopy there 3 years ago and reportedly this was normal. The patient did have a flareup a couple of years ago with tenesmus, blood and mucus. He reports no abdominal pain. He does take mesalamine (formerly Apriso) and take 0.375 milligrams capsules by mouth twice daily. He reports no abdominal pain, weight loss or diarrhea. He does see a little blood occasionally. He reports no family history of colon cancer or colitis or Crohn's disease. He does take a probiotic (align). Procedure: Prior to the procedure, a history and physical exam was performed, and patient's medications and allergies were reviewed. The risks, benefits and alternatives of the sedation and procedure were discussed with the patient. All questions were answered and informed consent was obtained. The patient was brought to the procedure room. Patient identification and proposed procedure were verified by the physician and the nurse. The patient was placed in a left lateral decubitus position and the scope was passed under direct vision. Throughout the procedure, the patient's blood pressure, pulse, and oxygen saturations were monitored continuously. The colonoscopy was accomplished without difficulty. The patient tolerated the procedure well. Findings: On digital rectal examination there was normal rectal tone. There were no external hemorrhoids. The colonoscope was introduced through the anal canal to the rectum and advanced to the cecum. The ileocecal valve and appendiceal orifice were identified. The scope was advanced a short distance into the ileum which appeared grossly normal. The scope was then withdrawn into the colon. The cecum, ascending, transverse, descending and sigmoid colon were normal with no mucosal abnormalities identified. Most of the rectum was normal. There may have been some very minimal low-grade proctitis of the distal 2 to 3 cm of rectum. Cold biopsies were obtained from the distal rectum. Upon retroflexion within the rectum there were grade 1 internal hemorrhoids.The preparation was excellent throughout with [place] Preparation Score of 9. The cecal time was 12 minutes. Impression: 1. 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 I would continue maintenance therapy with mesalamine. I would recommend surveillance in 5 years. I would consider adding some bulk fiber supplementation. He will continue probiotic therapy.
[2020-01-23 08:09] VITALS: O2SAT 97
[2020-01-23 08:26] VITALS: BP 103/64; PULSE 58; RESP 16; TEMP 36.2; O2SAT 97
[2020-01-23 08:36] VITALS: BP 118/70; PULSE 66; RESP 16; O2SAT 97
[2020-01-23 08:46] VITALS: BP 123/69; PULSE 74; RESP 16; O2SAT 99
[2020-01-23 08:56] VITALS: BP 121/69; PULSE 52; RESP 16; O2SAT 99
== END 2020-01-23 08:56 | disposition home or self-care (01) ==
LOC: OUTP 06:57
PROVIDERS: PCP Family Medicine; Visit Provider Internal Medicine Gastroenterology
PROC: 0DJD8ZZ Inspection of Lower Intestinal Tract, Via Natural or Artificial Opening Endoscopic (ICD-10-PCS; CPT 45378; principal; 2020-01-23 08:00)
DX: Z12.11 Encounter for screening for malignant neoplasm of colon (principal); K51.20 Ulcerative (chronic) proctitis without complications; Z87.19 Personal history of other diseases of the digestive system; E78.5 Hyperlipidemia, unspecified; I10 Essential (primary) hypertension
CPT/HCPCS: 45380

== ENCOUNTER → 2020-03-15 13:22 | Outpatient (POV) | payer BC, SELFPAY | PROVIDERS: Visit Provider Nurse Practitioner Family | DX: Z00.00 Encounter for general adult medical examination without abnormal findings (principal) ==

== ENCOUNTER → 2020-04-02 15:38 | Outpatient (CLI) | payer BC, SELFPAY ==
[2020-04-02 16:50] LABS: Basophils % 0.5 % (0.1-2.0); Eosinophils # 0.1 K/mm3 (0.0-0.4); Eosinophils % 1.7 % (0.1-12.0); Hematocrit 41.2 % (42.0-52.0); Hemoglobin 13.3 g/dL (14.1-18.0); Lymphocytes # 2.3 K/mm3 (0.7-4.5); Lymphocytes % 29.5 % (10-50); Mean Corpuscular HGB Conc 32.4 g/dL (31.8-35.4); Mean Corpuscular Hemoglobin 29.9 pg (27.0-31.2); Mean Corpuscular Volume 92.3 fl (80-94); Mean Platelet Volume 7.7 fl (7.4-10.4); Monocytes # 0.7 K/mm3 (0.1-1.0); Monocytes % 9.3 % (1.7-9.3); Neutrophils # 4.5 K/mm3 (1.8-7.8); Platelet Count 256 K/mm3 (142-424); Red Blood Count 4.47 M/mm3 (4.60-6.20); Red Cell Distribution Width 13.6 % (11.5-17.5); White Blood Count 7.7 K/mm3 (4.8-10.8)
[2020-04-02 17:35] LABS: Alanine Aminotransferase 51 U/L (12-78); Albumin Level 4.6 g/dl (3.5-5.0); Albumin/Globulin Ratio 1.7 (1.1-1.8); Alkaline Phosphatase 87 U/L (38-126); Amylase 56 U/L (30-110); Anion Gap 10.8 mEq/L (5-15); Aspartate Amino Transferase 38 U/L (17-59); Bilirubin,Total 0.7 mg/dl (0.2-1.3); Blood Urea Nitrogen 11 mg/dl (9-20); Calcium 9.3 mg/dl (8.4-10.2); Carbon Dioxide 31 mmol/L (22.0-30.0); Chloride 105 mmol/L (98-107); Estimated Glomerular Filt Rate 86 ml/min (>60); GFR (African American) 104 ML/MIN (>60); Globulin 2.7 g/dL (1.3-3.2); Glucose 109 mg/dl (74-100); Lipase 70 U/L (23-300); Potassium 4.8 mmoL/L (3.5-5.1); Sodium 142 mmol/L (136-145); Total Protein,Serum 7.3 g/dl (6.3-8.2)
== END ==
PROVIDERS: Visit Provider Nurse Practitioner Family
DX: R10.9 Unspecified abdominal pain (principal); K51.90 Ulcerative colitis, unspecified, without complications
CPT/HCPCS: 36415; 80053; 82150; 83690; 85025

== ENCOUNTER → 2020-04-05 07:59 | Outpatient (POV) | payer BC, SELFPAY | PROVIDERS: Visit Provider Nurse Practitioner Family | DX: Z00.00 Encounter for general adult medical examination without abnormal findings (principal) ==

== ENCOUNTER → 2020-05-17 08:59 | Outpatient (POV) | payer BC, SELFPAY | PROVIDERS: Visit Provider Nurse Practitioner Family | DX: Z00.00 Encounter for general adult medical examination without abnormal findings (principal) ==

== ENCOUNTER 2020-08-24 18:25 | Emergency (ER) | payer BC, SELFPAY ==
[2020-08-24 18:30] VITALS: BP 117/70; PULSE 61; RESP 19; TEMP 37; O2SAT 98; BMI 24.3
--- NOTE | 2020-08-24 19:16 | HMH.EDUTC ---
[facility] [place] Disposition Clinical Impression: Folliculitis Disposition: Home, Self-Care Condition on Discharge: Good Instructions: Folliculitis, DI for Folliculitis Additional Instructions: You have antifungal cream at home use it on the area as advised You advised you had hydrocortisone cream at home this may help with itching and irritation Follow up with your Family Doctor if no improvement or any worsening of symptoms REturn if needed Straight to ER if any life threatening symptoms Referrals: J Carlos Carter MD [Primary Care Provider] - As needed Time of Disposition: 19:47 Medical Decision Making - Charlie Inquiry Pt receiving controlled substance: No Charlie was queried for this patient: No Vital Signs: 08/24/20 18:30 08/24/20 19:47 Temperature 98.6 F 98.6 F Temperature Source Oral Pulse Rate 61 Pulse Rate [Right Brachial] 61 Respiratory Rate 19 19 Blood Pressure 117/70 Blood Pressure [Right Arm] 117/70 Blood Pressure Mean [Right Arm] 85 Blood Pressure Source [Right Arm] Automatic Cuff Blood Pressure Position [Right Arm] Sitting 02 Sat by Pulse Oximetry 98 Oxygen Delivery Method Room Air Medical Decision Narrative: Spoke with ED Physician and had them look at rash and agreed appears like folliculitis Patient reports that he has topical medication at home to treat because he gets it on his abdomen at times Patient advised to use medication as he was directed and patient verbalized understanding [facility] [place] HPI - General Stated complaint: rash on legs Time Seen by Provider: 08/24/20 19:17 Mode of Arrival: Ambulatory Source of Information: Patient Limitations: No Limitations Description of Symptoms (Recalled from Triage Doc. by RN): PATIENT C/O RASH TO BILATERAL LEGS THAT HE NOTICED AFTER GETTING OUT OF THE SHOWER A COUPLE OF HOURS AGO HEENT Symptoms (Recalled from RN notes): No Resp Symptoms (Recalled from RN notes): No Skin Symptoms (Recalled from RN notes): Yes MS Symptoms (Recalled from RN notes): No Functional Status (Recalled from RN notes): WNL - History of Present Illness Provider Complaint: Patient states that he was in the weeds over the weekend shooting but didnt notice rash State that several people with him had ticks on them but he checked himself and didnt find anything State that he hasnt noticed a rash until he got out of the shower earlier and noticed rash on his left calf area State that he has been multiple places today and unsure if maybe he touched something that he may be allergic too or not State that he has one small area but doesnt think it is the same rash on his right calf State that area does not itch nor does it hurt. States that he was concerned it may be from tick bite but he has checked his self multiple times and not found any ticks on him - Related Data Home Medications Medication Instructions Recorded Confirmed mesalamine 0.375 gram 4 tab PO BID 11/28/19 08/24/20 capsule,extended release 24 hr Atorvastatin Calcium [Lipitor 40mg 40 mg PO DAILY 01/20/20 08/24/20 Tab] Metoprolol Succinate [Metoprolol 12.5 mg PO DAILY 01/20/20 08/24/20 Succinate 25mg Tablet*] Allergies Allergy/AdvReac Type Severity Reaction Status Date / Time No Known Drug Allergies Allergy Unknown Verified 01/23/20 07:09 [NKDA] - Worker's Comp Is this a Worker's Comp case?: No [facility] History - Hepatitis A Screen Drug use history?: No High risk sexual behaviors?: No History of sexually transmitted infection?: No Currently employed?: No Childcare worker?: No Do you have indoor plumbing?: Yes Do you have electricity?: Yes Attestation statement:: This patient has been screened for Hepatitis A risk factors. I have reviewed the patient's past medical history: Yes Medical History: Reports:: Arrhythmia, Hyperlipidemia, Hypertension, Kidney Stones Denies:: Cancer, Diabetes Mellitus Type 1, Diabetes Mellitus Type 2, Internal Pacemaker, MRSA, Seizures Other Medical History:
[2020-08-24 19:47] VITALS: BP 117/70; PULSE 61; RESP 19; TEMP 37; O2SAT 98
== END 2020-08-24 19:49 | disposition home or self-care (01) ==
PROVIDERS: Emergency Provider Nurse Practitioner Family; PCP Family Medicine
DX: L73.9 Follicular disorder, unspecified (principal); E78.5 Hyperlipidemia, unspecified; I10 Essential (primary) hypertension; Z87.442 Personal history of urinary calculi; Z87.891 Personal history of nicotine dependence
CPT/HCPCS: 99202; G0463

== ENCOUNTER → 2021-04-07 15:22 | Outpatient (CLI) | payer BC, SELFPAY ==
[2021-04-07 16:34] LABS: Basophils # 0.1 K/mm3 (0-0.2); Basophils % 1.4 % (0.1-2.0); Eosinophils # 0.1 K/mm3 (0.0-0.4); Eosinophils % 1.5 % (0.1-12.0); Hematocrit 47.5 % (42.0-52.0); Hemoglobin 15.6 g/dL (14.1-18.0); Lymphocytes # 2.2 K/mm3 (0.7-4.5); Lymphocytes % 29.1 % (10-50); Mean Corpuscular HGB Conc 32.9 g/dL (31.8-35.4); Mean Corpuscular Hemoglobin 30.4 pg (27.0-31.2); Mean Corpuscular Volume 92.5 fl (80-94); Monocytes # 0.6 K/mm3 (0.1-1.0); Monocytes % 8.1 % (1.7-9.3); Neutrophils # 4.5 K/mm3 (1.8-7.8); Neutrophils % 59.9 % (37.0-80.0); Platelet Count 302 K/mm3 (142-424); Red Blood Count 5.13 M/mm3 (4.60-6.20); Red Cell Distribution Width 13.6 % (11.5-17.5); White Blood Count 7.4 K/mm3 (4.8-10.8)
[2021-04-07 17:01] LABS: Anion Gap 11.2 mEq/L (5-15); Blood Urea Nitrogen 12 mg/dl (9-20); Calcium 9.2 mg/dl (8.4-10.2); Carbon Dioxide 33 mmol/L (22.0-30.0); Chloride 99 mmol/L (98-107); Estimated Glomerular Filt Rate 86 ml/min (>60); GFR (African American) 103 ML/MIN (>60); Glucose 130 mg/dl (74-100); Potassium 4.2 mmoL/L (3.5-5.1); Sodium 139 mmol/L (136-145)
== END ==
PROVIDERS: Visit Provider Physician Assistant
DX: Z01.812 Encounter for preprocedural laboratory examination (principal); Z11.52 Encounter for screening for COVID-19; I20.8 Other forms of angina pectoris; R00.2 Palpitations; R42 Dizziness and giddiness; R55 Syncope and collapse; I49.3 Ventricular premature depolarization; I65.29 Occlusion and stenosis of unspecified carotid artery; E78.2 Mixed hyperlipidemia
CPT/HCPCS: 36415; 80048; 85025; C9803; U0003; U0005

== ENCOUNTER 2021-04-11 08:44 | Day surgery (SDC) | payer BC, SELFPAY ==
[2021-04-11] VITALS (11 sets, daily range): BP systolic 94–116; BP diastolic 56–77; PULSE 46–60; RESP 16–18; TEMP 36.9; O2SAT 98–100; BMI 25.0
--- NOTE | 2021-04-11 07:21 | IR_ITS ---
APPROVED REPORT Patient Location: Outpatient PROCEDURES Left heart catheterization Left ventriculogram Selective coronary angiogram INDICATION Syncope, Abnormal EKG with angina pectoris, Risk factors for coronary disease, Informed consent was obtained prior to the procedure. COMPLICATIONS NONE Estimated Blood Loss: LESS THAN 10 ML TECHNIQUE One percent lidocaine used to anesthetize the right anterior aspect of the wrist. The right radial artery was accessed via the Seldinger technique. A 6 Tel[place] sheath was placed in the right radial artery. 2.5 mg of verapamil, 800 mcg of nitroglycerin, 1mg Lidocaine and 5000 U Heparin were given through the arterial sheath. The papa catheter was also used to perform left heart catheterization, left ventriculogram and selective coronary angiogram. At the end of the procedure the sheath was removed good hemostasis was achieved using Traclet band, patient was transferred to the postop holding area in stable condition. ANGIOGRAPHIC RESULTS The left main artery Normal The left anterior descending artery No angiographic evidence of macrovascular atheromatous disease with slow flow consistent with SUJEY II The circumflex artery Nondominant with slow flow and no angiographic stenosis The right coronary artery Large dominant with an unusual proximal tortuous course accompanied by SUJEY II flow with no evidence of macro vascular stenosis The HENDERSON ventriculogram reveals Normal 65 The left ventricular end-diastolic pressure 10 mmHg IMPRESSION Slow flow down the coronaries consistent with endothelial dysfunction Unusual proximal dominant tortuosity suggesting the possibility of a malignant course through the aorta and pulmonary artery Normal ejection fraction Normal left ventricular end-diastolic pressure PLAN 1. Recommend CTA of the pulmonary arteries or CTA of the coronary arteries if this test can be performed. Either test should show the proximal dominant right coronary artery and determine if a malignant course is present 2. If a malignant course is not present then patient symptoms stem from endothelial dysfunction. Endothelial function should be treated accordingly 3. The malignant course still needs to be evaluated given symptoms and angina Electronically signed by : James Plaza MD 04/11/2021 11:43:23
== END 2021-04-11 13:34 | disposition home or self-care (01) ==
LOC: CATHLAB 08:45
PROVIDERS: PCP Family Medicine; Visit Provider Internal Medicine
DX: I25.118 Atherosclerotic heart disease of native coronary artery with other forms of angina pectoris (principal); E78.2 Mixed hyperlipidemia; I49.3 Ventricular premature depolarization; I65.29 Occlusion and stenosis of unspecified carotid artery; R00.2 Palpitations; R42 Dizziness and giddiness; R55 Syncope and collapse
CPT/HCPCS: 93458; 99152; C1725; C1769; J1644; Q9967

== ENCOUNTER → 2021-04-14 09:25 | Outpatient (CLI) | payer BC, SELFPAY ==
--- NOTE | 2021-04-14 09:42 | CT_ITS ---
FINAL REPORT TECHNIQUE: Postcontrast axial images of the chest were performed in a CTA protocol. This study was performed with techniques to keep radiation doses as low as reasonably achievable, (ALARA). Individualized dose reduction technique using automated exposure control or adjustment of mA and/or kV according to the patient's size were employed. CLINICAL HISTORY: sob, PREVIOUS SMOKER, LIGHTHEADEDNESS, ABNORMAL PULMONARY ARTERY SEEN ON RECENT HEART CATH FINDINGS: The heart is normal in size. No adenopathy is identified. No pleural or pericardial effusion is identified. The thoracic aorta is normal in caliber with no focal aneurysm or dissection identified. There is no filling defect to suggest pulmonary embolism. The main pulmonary artery diameter measures 25 mm. Main right pulmonary artery measures 24 mm. Main left pulmonary artery measures 20 mm. No lung infiltrate or mass is identified. The images of the upper abdomen demonstrate a small, nonobstructing right renal stone measuring less than 3 mm as well as probable, small right renal cysts. IMPRESSION: No evidence for PE on this exam. Main pulmonary artery diameter of 25 mm, Main right pulmonary artery 24 mm, Main left pulmonary artery 20 mm. Reviewed, Interpreted and Dictated by Lake Taylor III, MD Transcribed by Noemi Arzate Authenticated by Lake Taylor III, MD on 04/14/2021 11:18:55 AM [facility]
== END ==
PROVIDERS: PCP Family Medicine; Visit Provider Internal Medicine
DX: I25.10 Atherosclerotic heart disease of native coronary artery without angina pectoris (principal); R06.02 Shortness of breath
CPT/HCPCS: 71275; Q9967

== ENCOUNTER 2021-04-20 10:52 | Emergency (ER) | payer BC, SELFPAY ==
--- NOTE | 2021-04-20 11:44 | XR_ITS ---
FINAL REPORT CLINICAL HISTORY: FEELS LIKE SOMETHING IS STUCK IN THROAT FINDINGS: 2 views of the neck were obtained. There is no acute fracture. There is no malalignment. There is mild degenerative change with small osteophytes. There is no prevertebral soft tissue swelling. The airway appears patent. There is no foreign body identified. IMPRESSION: No foreign body is identified. Reviewed, Interpreted and Dictated by Lake Taylor III, MD Transcribed by Michael Becker Authenticated by Lake Taylor III, MD on 04/20/2021 01:24:10 PM [facility]
[2021-04-20 11:45] VITALS: BP 140/87; PULSE 66; RESP 18; TEMP 37; O2SAT 98; BMI 25.4
--- NOTE | 2021-04-20 12:21 | HMH.EDUTC ---
[facility] [place] Disposition Clinical Impression: Throat irritation Disposition: Home, Self-Care Condition on Discharge: Good Instructions: DI for Esophageal Dysphagia, DI for Oropharyngeal Dysphagia, Omeprazole Additional Instructions: Take medication as prescribed Follow up with Family Doctor as discussed in the [facility] today call for appointment and further treatment and evaluation Return if needed Straight to ER if any life threatening symptoms Soft foods may be easier to swallow until you have further testing Prescriptions: Omeprazole [Omeprazole 20mg Capsule] 20 mg PO DAILY #30 cap Transmission Status: Pending to [facility]/pharmacy #[id number] Referrals: J Carlos Carter MD [Primary Care Provider] - As needed Time of Disposition: 13:40 Medical Decision Making - Charlie Inquiry Pt receiving controlled substance: No Charlie was queried for this patient: No Vital Signs: 04/20/21 11:45 Temperature 98.6 F Temperature Source Oral Pulse Rate [Left] 66 Respiratory Rate 18 Blood Pressure [Right Arm] 140/87 Blood Pressure Mean [Right Arm] 104 02 Sat by Pulse Oximetry 98 - Radiology Data #1 Image(s): Other (soft tissue neck) Image Reviewed: Yes I have reviewed radiologist's interpretation IMPRESSION: No foreign body is identified. - Physician Consults Physician Consulted: Dr Carter Time: 13:35 Reason -: Other Comment/Response: Spoke with Dr Carter and informed him of patient complaint advised to start patient on PPi and follow up in office for further evaluation and treatment Medical Decision Narrative: Patient able to talk in complete sentences denies trouble swallowing at this time and able to drink water without difficulty Patient still drinking ok states that throat felt irritated [facility] [place] HPI - General Stated complaint: feels like something in throat Time Seen by Provider: 04/20/21 12:21 Mode of Arrival: Ambulatory Source of Information: Patient Limitations: No Limitations Description of Symptoms (Recalled from Triage Doc. by RN): pt c/o trouble swallowing. pt states it feels like he has something stuck in the back of his throat. pt states this has been ongoing x1mo. HEENT Symptoms (Recalled from RN notes): Yes Resp Symptoms (Recalled from RN notes): No Skin Symptoms (Recalled from RN notes): No MS Symptoms (Recalled from RN notes): No Functional Status (Recalled from RN notes): wnl - History of Present Illness Provider Complaint: Patient states that on and off for about a month at times when he eats or takes his medication he feels like something gets stuck in his throat and he will clear his throat and after drinking fluids it clears up States that yesterday he was eating and felt like it did it again States that today he feels irritated in there and has been eating and drinking ok today but wanted to come in and make sure that nothing was stuck in his throat - Related Data Home Medications Medication Instructions Recorded Confirmed mesalamine 0.375 gram 4 tab PO BID 11/28/19 04/07/21 capsule,extended release 24 hr Atorvastatin Calcium [Lipitor 40mg 40 mg PO DAILY 01/20/20 04/07/21 Tab] Metoprolol Succinate [Metoprolol 12.5 mg PO DAILY 01/20/20 04/07/21 Succinate 25mg Tablet*] Previous Rx's Medication Instructions Recorded Omeprazole [Omeprazole 20mg 20 mg PO DAILY #30 cap 04/20/21 Capsule] Allergies Allergy/AdvReac Type Severity Reaction Status Date / Time No Known Drug Allergies Allergy Unknown Verified 04/07/21 13:54 [NKDA] - Worker's Comp Is this a Worker's Comp case?: No [facility] History - Hepatitis A Screen Drug use history?: No High risk sexual behaviors?: No History of sexually transmitted infection?: No Currently employed?: No Childcare worker?: No Do you have indoor plumbing?: Yes Do you have electricity?: Yes Attestation statement:: This patient has been screened for Hepatitis A risk factors. I have reviewed the patient's past medical history: Y
[2021-04-20 13:46] VITALS: BP 140/87; PULSE 66; RESP 18; TEMP 37
== END 2021-04-20 13:47 | disposition home or self-care (01) ==
PROVIDERS: Emergency Provider Nurse Practitioner; PCP Family Medicine
DX: R13.10 Dysphagia, unspecified (principal); J39.2 Other diseases of pharynx; I10 Essential (primary) hypertension; E78.5 Hyperlipidemia, unspecified; Z87.891 Personal history of nicotine dependence
CPT/HCPCS: 70360; 99213; G0463

== ENCOUNTER 2022-07-30 11:56 | Emergency (ER) | payer BC, SELFPAY ==
[2022-07-30] VITALS (11 sets, daily range): BP systolic 115–157; BP diastolic 65–73; PULSE 44–77; RESP 20; TEMP 36.9; O2SAT 79–100; BMI 24.3
--- NOTE | 2022-07-30 12:18 | HMH.EDGENADL ---
Discharge Plan Disposition Patient Disposition: Home, Self-Care Prescriptions Prescriptions: No Action mesalamine 0.375 gram capsule,extended release 24hr 4 tab PO BID atorvastatin 40 MG tablet 40 mg PO DAILY metoprolol succinate 25 MG tablet extended release 24 hr 12.5 mg PO DAILY omeprazole 20 MG capsule,delayed release(DR/EC) 20 mg PO DAILY Qty: 30 0RF Referrals Follow up/Referrals: J Carlos Carter MD [Primary Care Provider] - See instructions Activity Restrictions/Add. Instructions Additional Instructions/Restrictions: Follow-up with your family doctor regarding his visit to the emergency department. Strain your urine every time you urinate. If you have fevers, chills, inability to urinate, jose g blood per urine, or any other concerns, return to the ER for further evaluation. Clinical Impressions Clinical Impression: Right nephrolithiasis Discharge ED Provider: Vignesh Chu General Adult HPI General Chief complaint: Abdominal Pain Stated complaint: abd pain Time Seen by Provider: 07/30/22 11:59 Mode of Arrival: Ambulatory Source of Information: Patient Limitations: No Limitations Description of Symptoms (Recalled from ER Triage Doc. by RN): pt to ed c/o RLQ abd pain that started at approx 0930. pt states he has a hx of ulcerative colitis. pt reports urinary retention/urgency that started today. History of Present Illness HPI narrative: Is a 61-year-old male with history of ulcerative colitis, hypertension, hyperlipidemia, CAD presenting with abdominal pain. Patient states that just prior to arrival around 9:30 AM, patient was in zoroastrianism. He started having abdominal pain in his right lower quadrant. Does not radiate, 8 out of 10, associated with urinary urgency and fecal urgency, but no blood or burning when he pees, no hematochezia. Has never had anything like this in the past, last ulcerative colitis flare was years ago and patient is controlled on mesalamine. Denies fevers, chills, rash, or any other concerns. Last bowel movement was just prior to arrival, patient has been passing gas. Related Data Home Medications Medication Instructions Recorded Confirmed mesalamine 0.375 gram 4 tab PO BID ULCERATIVE COLITIS 11/28/19 04/27/21 capsule,extended release 24 hr atorvastatin 40 mg tablet 40 mg PO DAILY Cholesterol 01/20/20 04/27/21 metoprolol succinate 25 mg 12.5 mg PO DAILY Hypertension 01/20/20 04/27/21 tablet,extended release 24 hr Previous Rx's Medication Instructions Recorded omeprazole 20 mg capsule,delayed 20 mg PO DAILY #30 caps 04/20/21 release Allergies Allergy/AdvReac Type Severity Reaction Status Date / Time No Known Drug Allergies Allergy Unknown Verified 04/27/21 14:27 [NKDA] [facility] Disclaimer: The information contained in this section may have been updated after the patient was seen, as this information can be updated by other users. Medical History (Updated 07/30/22 @ 17:05 by Vignesh Chu MD) Endothelial dysfunction of coronary artery Social History Smoking Status: Never smoker second hand exposure: No alcohol intake: never substance use type: denies use and other current occupational status: retired Travel in the last 8 weeks: Inside the [place] household members: spouse housing: house current occupational exposures/hazards: No caffeine: Yes ROS Obtained: Yes All systems reviewed & no additional complaints except as documented Physical Exam General General appearance: alert and in distress (holding abdomen) Respiratory Respiratory exam: Absent respiratory distress Cardiovascular Cardiovascular exam: Present regular rate and normal rhythm Abdominal Exam Abdominal exam: Present soft and tenderness; Absent distention, guarding, rebound or rigidity Neurological Exam Neurological exam: Present alert, oriented X3 and CN II-XII intact Medical Decision Making Medical Records Medic
--- NOTE | 2022-07-30 12:44 | PC.NURSE ---
family at BS
[2022-07-30 12:50] LABS: Basophils % 0.3 % (0.1-2.0); Eosinophils # 0.1 K/mm3 (0.0-0.4); Eosinophils % 0.8 % (0.1-12.0); Hematocrit 42.4 % (42.0-52.0); Lymphocytes # 1.3 K/mm3 (0.7-4.5); Lymphocytes % 12.2 % (10-50); Mean Corpuscular HGB Conc 33.1 g/dL (31.8-35.4); Mean Corpuscular Hemoglobin 29.3 pg (27.0-31.2); Mean Corpuscular Volume 88.5 fl (80-94); Monocytes # 0.7 K/mm3 (0.1-1.0); Monocytes % 6.9 % (1.7-9.3); Neutrophils # 8.4 K/mm3 (1.8-7.8); Neutrophils % 79.9 % (37.0-80.0); Platelet Count 226 K/mm3 (142-424); Red Blood Count 4.79 M/mm3 (4.60-6.20); Red Cell Distribution Width 13.4 % (11.5-17.5); White Blood Count 10.6 K/mm3 (4.8-10.8)
[2022-07-30 12:51] LABS: Chloride 101 mmol/L (98-107); Potassium 3.8 mmoL/L (3.5-5.1); Sodium 140 mmol/L (136-145)
[2022-07-30 12:53] LABS: Alanine Aminotransferase 29 U/L (12-78); Aspartate Amino Transferase 33 U/L (17-59); Blood Urea Nitrogen 9 mg/dl (9-20); Creatinine Clearance Estimated 82 mL/min (50-200); Estimated Glomerular Filt Rate 75 ml/min (>60); GFR (African American) 91 ML/MIN (>60)
[2022-07-30 12:54] LABS: Albumin Level 4.5 g/dl (3.5-5.0); Albumin/Globulin Ratio 1.7 (1.1-1.8); Alkaline Phosphatase 90 U/L (38-126); Anion Gap 13.8 mEq/L (5-15); Bilirubin,Total 0.7 mg/dl (0.2-1.3); Calcium 8.6 mg/dl (8.4-10.2); Carbon Dioxide 29 mmol/L (22.0-30.0); Globulin 2.7 g/dL (1.3-3.2); Glucose 152 mg/dl (74-100); Lipase 53 U/L (23-300); Total Protein,Serum 7.2 g/dl (6.3-8.2)
[2022-07-30 12:55] LABS: Lactic Acid 1.1 mmol/L (0.7-2.1)
[2022-07-30 12:59] LABS: C-Reactive Protein 1.1 mg/L (0-4)
[2022-07-30 13:16] LABS: Erythrocyte Sedimentation Rate 3 mm/hr (0-20)
--- NOTE | 2022-07-30 13:21 | CT_ITS ---
PROCEDURE INFORMATION: Exam: CT Abdomen And Pelvis With Contrast Exam date and time: 07/30/2022 2:11 PM Age: 61 years old Clinical indication: Abdominal pain; Localized; Right lower quadrant (rlq); Additional info: Intractible rlq pain TECHNIQUE: Imaging protocol: Computed tomography of the abdomen and pelvis with contrast. Radiation optimization: All CT scans at this facility use at least one of these dose optimization techniques: automated exposure control; mA and/or kV adjustment per patient size (includes targeted exams where dose is matched to clinical indication); or iterative reconstruction. Contrast material: ISOVUE; Contrast volume: 75 ml; Contrast route: IV; REPORTING DATA: Count of CT and Cardiac NM exams in prior 12 months: This patient has received 0 known CTs and 0 known cardiac nuclear medicine studies in the 12 months prior to the current study. COMPARISON: CT ABDOMEN PELVIS WO CON 11/15/2019 10:05 AM FINDINGS: Lungs: Lung bases are unremarkable. Pleural spaces: No pneumothorax. No pleural effusion. Liver: No focal hepatic lesions. Gallbladder and bile ducts: Gallbladder is distended without radiopaque cholelithiasis. No biliary ductal dilation. Pancreas: No peripancreatic fluid stranding. No main pancreatic ductal dilation. Spleen: No splenomegaly. Adrenal glands: The adrenal glands are normal. Kidneys and ureters: [id number] right hydroureteronephrosis proximal to a 5 x 5 x 5 mm calculus in the distal ureter. Right perinephric stranding noted. Bilateral nonobstructive caliceal calculi. Stomach and bowel: No bowel wall thickening or distention. Appendix: A normal appendix is identified. Intraperitoneal space: There is no evidence of free intraperitoneal or pelvic fluid. Vasculature: Aorta is nonaneurysmal. Scattered pelvic phleboliths noted Lymph nodes: No evidence of retroperitoneal or mesenteric lymphadenopathy. Urinary bladder: Unremarkable as visualized. Reproductive: Unremarkable as visualized. Bones/joints: No acute osseous abnormality. Soft tissues: Unremarkable. IMPRESSION: 1. Mild to moderate right hydroureteronephrosis proximal to a 5 x 5 x 5 mm calculus in the distal ureter. 2. Bilateral nonobstructive caliceal calculi.
--- NOTE | 2022-07-30 13:45 | PC.NURSE ---
family at BS
--- NOTE | 2022-07-30 14:52 | PC.NURSE ---
pt resting in bed nothing needed at this time
--- NOTE | 2022-07-30 15:43 | PC.NURSE ---
pt received water nothing else needed at this time, at bs
--- NOTE | 2022-07-30 16:23 | PC.NURSE ---
pt to restroom and back to room
[2022-07-30 16:27] LABS: Microscopic, Urine URINE MICROSCOPIC (MICROSCOPIC)
[2022-07-30 16:29] LABS: Appearance,Urine CLEAR (Clear); Bilirubin,Urine Negative (Negative); Blood, Urine Negative (Negative); Color,Urine YELLOW (Yellow); Glucose,Urine (UA) Negative (Negative); Ketones,Urine Negative (Negative); Leukocyte Esterase,Urine Negative (Negative); Nitrate,Urine Negative (Negative); PH,Urine 5.5 (5.0-8.5); Protein,Urine Negative (Negative); Specific Gravity, Urine <= 1.005 (1.005-1.030); Urobilinogen,Urine 0.2 EU/dl (0.2)
[2022-07-30 16:45] LABS: RBC,Urine Occasional #/hpf (0-3); Squamous Epithelial Cell,Urine Occasional #/hpf (0-5); WBC,Urine Occasional #/hpf (0-3)
== END 2022-07-30 17:15 | disposition home or self-care (01) ==
PROVIDERS: Emergency Provider Emergency Medicine; PCP Family Medicine
DX: N20.0 Calculus of kidney (principal); K51.90 Ulcerative colitis, unspecified, without complications
CPT/HCPCS: 74177; 80053; 81001; 83605; 83690; 85025; 85651; 86140; 96361; 96374; 96375; 99285; J2405; Q9967

== ENCOUNTER 2023-11-10 13:05 | Emergency (ER) | payer MEDICARE, SELFPAY ==
[2023-11-10] VITALS (14 sets, daily range): BP systolic 115–149; BP diastolic 61–78; PULSE 42–56; RESP 15–20; TEMP 36.7; O2SAT 97–100; BMI 24.4
--- NOTE | 2023-11-10 13:25 | CT_ITS ---
PROCEDURE INFORMATION: Exam: CT Abdomen And Pelvis Without Contrast Exam date and time: 11/10/2023 1:44 PM Age: 63 years old Clinical indication: Abdominal pain; Flank; Right; Additional info: R flank/groin pain, h/o uc and kidney stones TECHNIQUE: Imaging protocol: Computed tomography of the abdomen and pelvis without contrast. Radiation optimization: All CT scans at this facility use at least one of these dose optimization techniques: automated exposure control; mA and/or kV adjustment per patient size (includes targeted exams where dose is matched to clinical indication); or iterative reconstruction. COMPARISON: CT ABDOMEN PELVIS W CON 07/30/2022 2:11 PM FINDINGS: Lungs: Calcified right lung base granuloma. Diaphragm: Small hiatal hernia. Liver: Calcified liver granulomata. Gallbladder and biliary ducts: Normal. No calcified stones. No ductal dilation. Pancreas: Normal. No ductal dilation. Spleen: Calcified splenic granuloma. Adrenal glands: Normal. No mass. Kidneys and ureters: 8 x 5 mm stone in the right ureterovesicular junction, with moderate hydronephrosis and mild hydroureter. 2 mm nonobstructing right kidney stone and 1.5 cm simple appearing right kidney cyst. 2 mm nonobstructing left kidney stone, and 2 cm simple appearing left kidney cyst. Stomach and bowel: Unremarkable. No obstruction. No mucosal thickening. Appendix: No evidence of appendicitis. Intraperitoneal space: Unremarkable. No free air. No significant fluid collection. Vasculature: Atherosclerosis. Lymph nodes: Unremarkable. No enlarged lymph nodes. Urinary bladder: Unremarkable as visualized. Reproductive: Moderately enlarged prostate gland. Prostate calcifications. Bones/joints: Unremarkable. No acute fracture. Soft tissues: Unremarkable. IMPRESSION: 1. 8 x 5 mm stone in the right ureterovesicular junction, with moderate hydronephrosis and mild hydroureter. 2. Bilateral nonobstructing kidney stones. 3. Bilateral simple appearing kidney cysts. 4. Additional chronic/nonemergent findings as detailed above. COMMENTS: Consistent with the [employer]'s Incidental Findings Committee white paper (J Am Gabriel Radiol 2018): Any incidental renal lesion less than 1 cm or classified as too small to characterize, or any incidental cystic renal lesion characterized as simple-appearing, is likely benign. No follow-up imaging is recommended for these lesions per consensus recommendations based on imaging criteria.
[2023-11-10] MEDS: LACTATED RINGERS 1000ML 1,000 ML 999 ML IV (13:30)
[2023-11-10] MEDS: ACETAMINOPHEN 1,000MG/100ML VIAL 1000 MG IV (13:30)
[2023-11-10] MEDS: MORPHINE 4MG/ML SYRINGE 4 MG IV ×2 (13:30→17:22)
[2023-11-10] MEDS: KETOROLAC 30MG/ML VIAL 15 MG IV (13:31)
[2023-11-10] MEDS: ONDANSETRON 4MG/2ML VIAL 4 MG IV (13:31)
[2023-11-10 13:34] LABS: Basophils # 0.1 K/mm3 (0-0.2); Basophils % 0.8 % (0.1-2.0); Eosinophils # 0.1 K/mm3 (0.0-0.4); Eosinophils % 1.7 % (0.1-12.0); Hematocrit 43.4 % (42.0-52.0); Hemoglobin 14.5 g/dL (14.1-18.0); Lymphocytes # 2.1 K/mm3 (0.7-4.5); Lymphocytes % 33.6 % (10-50); Mean Corpuscular HGB Conc 33.5 g/dL (31.8-35.4); Mean Corpuscular Hemoglobin 30.7 pg (27.0-31.2); Mean Corpuscular Volume 91.9 fl (80-94); Mean Platelet Volume 7.6 fl (7.4-10.4); Monocytes # 0.7 K/mm3 (0.1-1.0); Monocytes % 10.7 % (1.7-9.3); Neutrophils # 3.4 K/mm3 (1.8-7.8); Neutrophils % 53.3 % (37.0-80.0); Platelet Count 238 K/mm3 (142-424); Red Blood Count 4.72 M/mm3 (4.60-6.20); Red Cell Distribution Width 13.8 % (11.5-17.5); White Blood Count 6.3 K/mm3 (4.8-10.8)
[2023-11-10 13:46] LABS: Alanine Aminotransferase 27 U/L (12-78); Albumin Level 4.3 g/dl (3.5-5.0); Albumin/Globulin Ratio 1.9 (1.1-1.8); Alkaline Phosphatase 72 U/L (38-126); Anion Gap 10.4 mEq/L (5-15); Aspartate Amino Transferase 36 U/L (17-59); Bilirubin,Total 0.6 mg/dl (0.2-1.3); Blood Urea Nitrogen 11 mg/dl (9-20); Calcium 8.8 mg/dl (8.4-10.2); Carbon Dioxide 26 mmol/L (22.0-30.0); Chloride 103 mmol/L (98-107); Creatinine Clearance Estimated 85 mL/min (50-200); Estimated Glomerular Filt Rate 85 ml/min (>60); GFR (African American) 102 ML/MIN (>60); Globulin 2.3 g/dL (1.3-3.2); Glucose 112 mg/dl (74-100); Potassium 3.4 mmoL/L (3.5-5.1); Sodium 136 mmol/L (136-145); Total Protein,Serum 6.6 g/dl (6.3-8.2)
--- NOTE | 2023-11-10 14:03 | PC.NURSE ---
Rounded on patient, tech took the patient a warm blanket and a pillow per patients request.
--- NOTE | 2023-11-10 14:04 | HMH.EDGENADL ---
Discharge Plan Disposition Patient Disposition: Home, Self-Care Condition: Good Prescriptions Prescriptions: New oxycodone 5 mg tablet 5 mg PO Q8H PRN (Reason: pain) Qty: 12 0RF ketorolac 10 mg tablet 10 mg PO Q8H PRN (Reason: pain) Qty: 12 0RF tamsulosin [Flomax] 0.4 mg capsule 0.4 mg PO HS Qty: 14 0RF ondansetron 4 mg tablet,disintegrating 4 mg PO Q8H PRN (Reason: nausea and vomiting) 4 Days Qty: 12 0RF No Action mesalamine 0.375 gram capsule,extended release 24hr 4 tab PO BID atorvastatin 40 MG tablet 40 mg PO DAILY metoprolol succinate 25 MG tablet extended release 24 hr 12.5 mg PO DAILY omeprazole 20 MG capsule,delayed release(DR/EC) 20 mg PO DAILY Qty: 30 0RF Referrals Follow up/Referrals: Nehemiah North MD [Primary Care Provider] - See instructions Activity Restrictions/Add. Instructions Additional Instructions/Restrictions: You were evaluated in the emergency department today and diagnosed with a very large kidney stone. It is so large that it may or may not pass on its own. Please pickers material handlers your prescriptions at the pharmacy and take them as needed for symptoms. You may also take Tylenol every 4-6 hours at home as needed for pain, but make sure that you are not consuming more than 3000 mg of acetaminophen in a day. It is very important that you follow-up closely with a urologist. We do not have urology here at our hospital for this type of issue, but we are giving you information for a urologist in [place] below. Return to the emergency department either locally or the nearest emergency department with urology right away for new or worsening symptoms, such as fever greater than 100.4 ?F, significant worsening in pain, intractable nausea and vomiting, or other concerns. [facility] [address] [address] Phone:?[phone] Clinical Impressions Clinical Impression: Hydronephrosis with urinary obstruction due to ureteral calculus Stand Alone Forms Stand Alone Forms: Work/School Release Instructions Patient Instructions: DI for Kidney Stones Print Language Print Language: Citizen Of [place] Discharge ED Provider: Anshu Sheets General Adult HPI General Chief complaint: Abdominal Pain Stated complaint: abd pain, nausea Time Seen by Provider: 11/10/23 13:19 Mode of Arrival: Wheelchair Source of Information: Patient and Spouse Limitations: No Limitations Description of Symptoms (Recalled from ER Triage Doc. by RN): pt is here today for rlq pain that began this morning, pt states the pain radiate down into his right testicle and he is having trouble going to the bathroom, pt states he has hx of UC and kidney stones and this feels like a kidney stone, denies any abd surgery History of Present Illness HPI narrative: This patient is a 63-year-old male with a history of hypertension, hyperlipidemia, CAD, ulcerative colitis, prior kidney stone, and prior tobacco use presenting to the emergency department for evaluation with concern for right lower quadrant abdominal pain radiating to his right testicle. It woke her up this morning. He states that it feels similar to his prior kidney stone except the testicular pain is new. He notes that the pain is so severe he feels nauseated. He denies any fevers, chills, chest pain, vomiting, changes bowel movements, rashes, or swelling. He does report difficulty urinating though he feels like he needs to go. Related Data Home Medications ?Medication ?Instructions ?Recorded ?Confirmed mesalamine 0.375 gram 4 tab PO BID ULCERATIVE COLITIS 11/28/19 04/27/21 capsule,extended release 24 hr atorvastatin 40 mg tablet 40 mg PO DAILY Cholesterol 01/20/20 04/27/21 metoprolol succinate 25 mg 12.5 mg PO DAILY Hypertension 01/20/20 04/27/21 tablet,extended release 24 hr Previous Rx's ?Medication ?Instructions ?Recorded omeprazole 20 mg capsule,delayed 20 mg PO DAILY #30 caps 04/20/21 release ketorolac 10 mg tablet 10 mg PO Q8H PRN pain #12 tabs 11/10/23 ondansetron 4 mg disintegrating 4 mg PO Q8H PRN nausea and 11/10/23 tablet vomiting 4 days #12 tabs oxycodone 5 mg tablet 5 mg PO Q8H PRN pain #12 tabs 11/10/23 tamsulosin 0.4 mg capsule (Flomax) 0.4 mg PO HS #14 caps 11/10/23 Allergies Allergy/AdvReac Type Severity Reaction Status Date / Time No Known Drug Allergies Allergy Unknown Verified 03/23/22 14:27 [NKDA] PFSH PFSH Disclaimer: The information contained in this section may have been updated after the patient was seen, as this information can be updated by other users. Medical History Endothelial dysfunction of coronary artery Social History Smoking Status: Never smoker second hand exposure: No alcohol intake: never substance use type: denies use and other current occupational status: retired Travel in the last 8 weeks: [place] the [place] household members: spouse housing: house current occupational exposures/hazards: No caffeine: Yes Other Medical History Have you received the Flu Vaccine for this season: No Have you received the Pneumonia Vaccine: No ROS Obtained: Yes All systems reviewed & no additional complaints except as documented Physical Exam General General appearance: alert Comment: Very uncomfortable appearing Head Head exam: atraumatic and normocephalic Eye Eye exam: Present normal appearance, PERRL and EOMI ENT ENT exam: Present normal exam, normal oropharynx, mucous membranes moist and normal external ear exam Neck Neck exam: Present normal inspection, full ROM and trachea midline; Absent tenderness Chest Chest inspection: Present normal inspection and symmetric chest wall rise; Absent tenderness Respiratory Respiratory exam: Present normal lung sounds bilaterally; Absent respiratory distress, wheezes, stridor or accessory muscle use Cardiovascular Cardiovascular exam: Present regular rate and normal rhythm Abdominal Exam Abdominal exam: Present soft; Absent distention, tenderness or guarding Extremities Exam Extremities exam: Present normal inspection, full ROM and normal capillary refill; Absent tenderness or edema Back Exam Back exam: Present normal inspection and full ROM; Absent tenderness Neurological Exam Neurological exam: Present alert, oriented X3, CN II-XII intact and normal gait; Absent motor sensory deficit Psychiatric Psychiatric exam: Present normal affect and normal mood Skin Skin exam: Present warm and dry Medical Decision Making Medical Records Medical records reviewed: Yes I reviewed the patient's medical records. Screening: Per USPSTF and CDC recommendations, given the prevalence of disease in our region, it is our hospital?s policy to screen for HIV and viral Hepatitis for all patients aged 18 and over and those with ongoing risk factors. Charlie Inquiry Pt receiving controlled substance: Yes Charlie was queried for this patient: Yes Risks and benefits of using a controlled substance: were discussed with pt by me Vital Signs: 11/10/23 13:07 11/10/23 13:18 11/10/23 13:31 Temperature 98.0 F Temperature Source Oral Pulse Rate 52 L 51 L Pulse Rate [Right Radial] 42 L Respiratory Rate 20 18 18 Blood Pressure 149/72 H 146/64 H Blood Pressure [Right Arm] 149/72 H Blood Pressure Mean 106 111 Blood Pressure Mean [Right Arm] 97 02 Sat by Pulse Oximetry 100 100 100 Oxygen Delivery Method Room Air 11/10/23 14:01 11/10/23 14:30 11/10/23 15:01 Temperature Temperature Source Pulse Rate 50 L 48 L 50 L Pulse Rate [Right Radial] Respiratory Rate 18 18 19 Blood Pressure 132/78 136/75 125/73 Blood Pressure [Right Arm] Blood Pressure Mean 96 102 95 Blood Pressure Mean [Right Arm] 02 Sat by Pulse Oximetry 100 100 100 Oxygen Delivery Method Lab Data Lab results reviewed: Yes I reviewed the patient's lab results. Lab Results 11/10/23 13:18: WBC 6.3, RBC 4.72, Hgb 14.5, Hct 43.4, MCV 91.9, MCH 30.7, MCHC 33.5, RDW 13.8, Plt Count 238, MPV 7.6, Neut % (Auto) 53.3, Lymph % (Auto) 33.6, Whitley % (Auto) 10.7 H, Eos % (Auto) 1.7, Baso % (Auto) 0.8, Neut # (Auto) 3.4, Lymph # (Auto) 2.1, Whitley # (Auto) 0.7, Eos # (Auto) 0.1, Baso # (Auto) 0.1, Sodium 136, Potassium 3.4 L, Chloride 103, Carbon Dioxide 26, Anion Gap 10.4, BUN 11, Creatinine 0.90, Estimated Creat Clear 85, Estimated GFR 85, Est GFR ( Amer) 102, Glucose 112 H, Calcium 8.8, Total Bilirubin 0.6, AST 36, ALT 27, Alkaline Phosphatase 72, Total Protein 6.6, Albumin 4.3, Globulin 2.3, Albumin/Globulin Ratio 1.9 H 11/10/23 13:18 11/10/23 13:18 Orders (Tests/Meds): ED MEDICATIONS Discontinued Medications Generic Name Dose Route Start Last Admin Trade Name Freq PRN Reason Stop Dose Admin Acetaminophen 1,000 mg 11/10/23 13:25 11/10/23 13:30 Acetaminophen 1,000mg/100ml Vial IV 11/10/23 13:26 1,000 mg ONCE ONE Administration Lactated Ringer's 1,000 mls @ 999 mls/hr 11/10/23 13:25 11/10/23 13:30 Lactated Ringer's 1000 Ml Bag IV 11/10/23 14:25 999 mls/hr .Q1H1M ONE Administration Ketorolac Tromethamine 15 mg 11/10/23 13:25 11/10/23 13:31 Ketorolac 30mg/Ml Vial IV 11/10/23 13:26 15 mg ONCE ONE Administration Morphine Sulfate 4 mg 11/10/23 13:25 11/10/23 13:30 Morphine 4mg/Ml Syringe IV 11/10/23 13:26 4 mg ONCE ONE Administration Ondansetron HCl 4 mg 11/10/23 13:25 11/10/23 13:31 Ondansetron 4mg/2ml Vial IV 11/10/23 13:26 4 mg ONCE ONE Administration Tamsulosin HCl 0.4 mg 11/10/23 16:06 11/10/23 16:12 Tamsulosin 0.4mg Capsule PO 11/10/23 16:07 0.4 mg ONCE ONE Administration ORDERS Category Date Time Status CT abdomen pelvis wo con Stat Cat Scan 11/10/23 13:25 Completed Complete Blood Count Auto Diff Stat Lab 11/10/23 13:18 Completed Comprehensive Metabolic Panel Stat Lab 11/10/23 13:18 Completed UA [Urinalysis and Microscopic] Stat Lab 11/10/23 13:25 Ordered Medical Decision Narrative: In summary, this patient is a 63-year-old man presenting to the Emergency Department for evaluation of right lower quadrant pain radiating to his right testicle. Differential diagnoses considered include but are not limited to ureterolithiasis, colitis, epididymitis, testicular torsion, urinary tract infection. Ruling out the most morbid conditions drove assessment. It should be noted patient's history includes hypertension, hyperlipidemia which may or may not be at goal therapy. This complicates all aspects of care by increasing patient's risk for morbidity. On exam, the patient is lying in bed very uncomfortable but nontoxic-appearing. Workup included CBC, CMP, urinalysis, CT abdomen and pelvis without IV contrast. He was given a liter bolus of IV fluids as well as IV morphine, Toradol, Zofran for symptomatic improvement. I independently interpreted CT scan prior to the radiologist read and noted a large 8 mm obstructive right ureterolithiasis at the [facility]. Please see their read for final interpretation. Labs were obtained that demonstrated no significant leukocytosis. Kidney function is normal. He has very mild hypokalemia. On reassessment, the patient had good improvement in his pain and is feeling a lot better. He remains afebrile. He has no physical exam findings or lab findings concerning for infection at this time. I had a very long discussion with him regarding the size of the stone and the fact that he may or may not be able to pass it on his own. I advised him that we could transfer him for urologic evaluation given the size of the stone and the obstruction, but he would rather try going home. We had a very long discussion regarding strict return precautions, including intractable nausea and vomiting, fevers, or significant worsening of pain. He expressed understanding and agreement. He was given instructions for very close follow-up with urology, strict return precautions, and he was discharged after all questions were answered. He was also given prescriptions for oxycodone, Toradol, Zofran, and Flomax. Critical Care Critical Care Time Critical Care Time: No
[2023-11-10] MEDS: TAMSULOSIN 0.4MG CAPSULE 0.4 MG PO (16:12)
--- NOTE | 2023-11-10 17:01 | PC.NURSE ---
called [facility] for transfer; will call back
--- NOTE | 2023-11-10 17:20 | PC.NURSE ---
[facility] the there is no Urology at [place] or [facility]
--- NOTE | 2023-11-10 17:24 | PC.NURSE ---
Pt now states he is wanting transfer for the kidney stone. [facility] and states [facility] to go to [facility].
--- NOTE | 2023-11-10 17:35 | PC.NURSE ---
Pt is refusing to have a I & O urinary catheter placed and would like to try a little longer to urinate himself. Dr. Sheets notified of this.
--- NOTE | 2023-11-10 17:41 | PC.NURSE ---
Dr. Sheets s/w [facility]
--- NOTE | 2023-11-10 17:47 | PC.NURSE ---
sent covid swab
[2023-11-10 17:54] LABS: Coronavirus 19, PCR Not Detected (NotDetected); Influenza A, PCR Not Detected (NotDetected); Influenza B, PCR Not Detected (NotDetected)
--- NOTE | 2023-11-10 18:34 | PC.NURSE ---
[facility]. Attempted to call [facility] with no answer. Will attempt again.
--- NOTE | 2023-11-10 18:38 | PC.NURSE ---
Attempted to call EMS again with no answer. Will call dispatch.
--- NOTE | 2023-11-10 19:21 | PC.NURSE ---
[facility] arrived [facility]
== END 2023-11-10 19:33 | disposition other institution (70) ==
PROVIDERS: Emergency Medicine; Emergency Provider Student in an Organized Health Care Education/Training Program; PCP Family Medicine
DX: N13.2 Hydronephrosis with renal and ureteral calculous obstruction (principal); R10.31 Right lower quadrant pain; R39.198 Other difficulties with micturition; R11.0 Nausea; N50.819 Testicular pain, unspecified
CPT/HCPCS: 74176; 80053; 85025; 87636; 96360; 96374; 96375; 99285; J0131; J1885; J2270; J2405; J7120

== ENCOUNTER 2024-03-16 08:55 | Emergency (ER) | payer MEDICARE, BC, SELFPAY ==
[2024-03-16 09:38] VITALS: BP 110/69; PULSE 98; RESP 19; TEMP 37.7; O2SAT 100; BMI 23.6
--- NOTE | 2024-03-16 09:49 | EXP.UTC ---
Discharge Plan Disposition Patient Disposition: Home, Self-Care Condition: Good Prescriptions Prescriptions: New azithromycin [Zithromax] 250 mg tablet 250 mg PO UD DOSE PK Qty: 6 0RF Rx Instructions: Take two (2) tablets today, then one (1) tablet days #2 thru #5 benzonatate 100 mg capsule 100 mg PO TIDP PRN (Reason: Cough) Qty: 30 0RF methylprednisolone 4 mg Tablets,Dose Pack 4 mg PO DIRECTED 6 Days Qty: 21 0RF Rx Instructions: Take 1 pack as directed for 6 days ondansetron 4 mg Tablet,Disintegrating 4 mg PO Q8H PRN (Reason: Nausea) Qty: 12 0RF No Action mesalamine 0.375 gram capsule,extended release 24hr 4 tab PO BID atorvastatin 40 MG tablet 40 mg PO DAILY metoprolol succinate 25 MG tablet extended release 24 hr 12.5 mg PO DAILY Referrals Follow up/Referrals: Nehemiah North MD [Primary Care Provider] - See instructions Activity Restrictions/Add. Instructions Additional Instructions/Restrictions: Drink plenty of fluids. Take tylenol or ibuprofen for pain or fever. Take the medications as directed. Follow up with your regular doctor. GO TO THE ER FOR ANY WORSENING SYMPTOMS Clinical Impressions Clinical Impression: Pharyngitis, Acute viral syndrome Instructions Patient Instructions: DI for Pharyngitis/Tonsillopharyngitis -- Adult, DI for Viral Syndrome Print Language Print Language: Romansh Discharge ED Provider: Chencho Zhou [facility] [place] HPI General Stated complaint: sore throat, fever, chills, headache Mode of Arrival: Ambulatory Source of Information: Patient Time Seen by Provider: 03/16/24 09:49 Description of Symptoms (Recalled from Triage Doc. by RN): SORE THROAT, FEVER, CHILLS, BOUCHER, NAUSEA HEENT Symptoms (Recalled from RN notes): Yes Resp Symptoms (Recalled from RN notes): Yes Skin Symptoms (Recalled from RN notes): No MS Symptoms (Recalled from RN notes): No Functional Status (Recalled from RN notes): WNL Related Data Home Medications ?Medication ?Instructions ?Recorded ?Confirmed mesalamine 0.375 gram 4 tab PO BID ULCERATIVE COLITIS 11/28/19 03/16/24 capsule,extended release 24 hr atorvastatin 40 mg tablet 40 mg PO DAILY Cholesterol 12/15/20 02/09/25 metoprolol succinate 25 mg 12.5 mg PO DAILY Hypertension 01/20/20 03/16/24 tablet,extended release 24 hr Previous Rx's ?Medication ?Instructions ?Recorded azithromycin 250 mg tablet 250 mg PO UD DOSE PK #6 tabs 03/16/24 (Zithromax) benzonatate 100 mg capsule 100 mg PO TIDP PRN Cough #30 caps 03/16/24 methylprednisolone 4 mg tablets in 4 mg PO DIRECTED 6 days #21 tabs 03/16/24 a dose pack ondansetron 4 mg disintegrating 4 mg PO Q8H PRN Nausea #12 tabs 03/16/24 tablet Allergies Allergy/AdvReac Type Severity Reaction Status Date / Time No Known Drug Allergies Allergy Unknown Verified 04/27/21 14:27 (NKDA) Worker's Comp Is this a Worker's Comp case?: No [facility] Disclaimer: The information contained in this section may have been updated after the patient was seen, as this information can be updated by other users. Medical History Endothelial dysfunction of coronary artery Social History Smoking Status: Never smoker second hand exposure: No alcohol intake: never substance use type: denies use and other current occupational status: retired Travel in the last 8 weeks: Inside the [place] household members: spouse housing: house current occupational exposures/hazards: No caffeine: Yes Have you lived/traveled outside US in past 30 days?: No Contact w/someone who lives/traveled outside US past 30 days?: No Exposure to someone with infectious disease in past 14 days?: No Do you have a fever (greater than 100.4 F or 38 C)?: Yes Have you tested positive for COVID-19: No Exposed to someone with COVID-19 in past 14 days?: No Do you have a sore throat?: Yes Do you have a cough?: No Do you have any weakness?: No Do you have any diarrhea?: No Are you experiencing any unusual bleeding?: No Do you have any muscle aches/pain?: No Do you have any abdominal pain?: No Are you experiencing loss of taste or smell?: No ROS Obtained: Yes All systems reviewed & no additional complaints except as documented Constitutional Constitutional: Reports chills and Reports fever(s) Eyes Eyes: Denies eye discharge ENT Ears, Nose, Mouth, and Throat: Reports as per HPI Cardiovascular Cardiovascular: Denies chest pain Respiratory Respiratory: Denies chest congestion and Reports cough Gastrointestinal Gastrointestingal: Reports nausea; Denies abdominal pain, constipation, cramping, diarrhea or vomiting Musculoskeletal Musculoskeletal: Denies arthralgias Integumentary/Breasts Skin/Breast: Denies rash Neurologic Neurologic: Denies paresthesias Physical Exam General General appearance: alert and in no apparent distress Head Head exam: atraumatic, normocephalic and normal inspection Eye Eye exam: Present normal appearance, PERRL and EOMI ENT ENT exam: Present mucous membranes moist and normal external ear exam Expanded ENT Exam TM/Canal exam: Bilateral TM: erythema and bulging Nose exam: Absent sinus tenderness Mouth exam: Present normal external inspection; Absent drooling Teeth exam: Present normal inspection Throat exam: Present tonsillar erythema, tonsillomegaly and tonsillar exudate Neck Neck exam: Present normal inspection, full ROM and trachea midline; Absent tenderness, meningismus or lymphadenopathy Chest Chest inspection: Present normal inspection and symmetric chest wall rise; Absent tenderness Respiratory Respiratory exam: Present normal lung sounds bilaterally; Absent respiratory distress, wheezes, stridor or accessory muscle use Cardiovascular Cardiovascular exam: Present regular rate and normal rhythm; Absent systolic murmur or diastolic murmur Abdominal Exam Abdominal exam: Present soft and normal bowel sounds; Absent distention, tenderness, guarding, rebound or rigidity Extremities Exam Extremities exam: Present normal inspection and normal capillary refill; Absent calf tenderness Back Exam Back exam: Present normal inspection and full ROM; Absent tenderness, CVA tenderness (R) or CVA tenderness (L) Neurological Exam Neurological exam: Present alert, oriented X3 and CN II-XII intact Psychiatric Psychiatric exam: Present normal affect and normal mood Skin Skin exam: Present warm, dry, intact and normal color Medical Decision Making Medical Records Medical records reviewed: No I reviewed the patient's medical records. Screening: Per USPSTF and CDC recommendations, given the prevalence of disease in our region, it is our hospital?s policy to screen for HIV and viral Hepatitis for all patients aged 18 and over and those with ongoing risk factors. Charlie Inquiry Pt receiving controlled substance: No Vital Signs: 03/16/24 09:38 Temperature 99.8 F H Temperature Source Oral Pulse Rate [Left Radial] 98 H Respiratory Rate 19 Blood Pressure [Left Arm] 110/69 Blood Pressure Mean [Left Arm] 82 02 Sat by Pulse Oximetry 100 Lab Data Lab results reviewed: Yes I reviewed the patient's lab results.
[2024-03-16 09:55] LABS: UTC Strep Screen (Rapid) Negative (Negative)
[2024-03-16 09:56] LABS: UTC Influenza A Antigen Negative (Negative); UTC Influenza B Antigen Negative (Negative)
[2024-03-16 10:29] LABS: Coronavirus 19, PCR Not Detected (NotDetected); Human Rhinovirus Not Detected (NotDetected); Influenza B, PCR Not Detected (NotDetected); Respiratory Syncytial Virus Not Detected (NotDetected)
[2024-03-16 10:31] VITALS: BP 110/69; PULSE 98; RESP 19; TEMP 37.7
[2024-03-16 13:20] LABS: Influenza A, PCR Detected (NotDetected)
== END 2024-03-16 10:31 | disposition home or self-care (01) ==
PROVIDERS: Emergency Provider Nurse Practitioner Family; PCP Family Medicine
DX: B34.9 Viral infection, unspecified (principal)
CPT/HCPCS: 87631; 87804; 87880; 99212; G0381

== ENCOUNTER 2024-08-13 14:52 | Outpatient (CLI) | payer MEDICARE, BC, OTHER, SELFPAY ==
--- OUTSIDE RECORDS SUMMARY | 2023-11-16 10:15 | XMS_ITS ---
Author Organization Heidi Address [address] [facility] [address] [facility] [address] GABRIELA Dolan [id number] Care Team Providers Care Religious Ritual Slaughterer Name Role Phone Mary Anne Nehemiah Unavailable [phone] Allergies No Known Allergies REASON FOR VISIT f/u kidney stone , no bowel movements Medications Medication SIG (Take, Route, Frequency, Duration) Notes Start Date End Date Status Metoprolol Succinate ER 25 MG 1 tablet O rally Once a day; Duration: 30 day(s) Active Mesalamine ER 0.375 GM 4 capsules in the morning Orally twice a day Active Atorvastatin Calcium 40 MG 1 tablet Oral ly Once a day; Duration: 30 day(s) Active Align - as directed Orally A ctive Hair Skin Nails - as directed Orally Active Phenazopyridine HCl 100 MG 2 tablets aft er meals Orally Three times a day; Duration: 2 day(s) Active Tamsulosin HCl 0.4 MG 1 capsule Orally O nce a day; Duration: 30 day(s) Active Vitamin C 500 MG as directed Orally Active Konsyl Original Daily Fiber Active Problems Problem Type SNOMED Code ICD Code Onset Dates Problem Status W/U Status Risk Notes Problem Acute constipation (607847632) Acute constipation (K59.00) Active confirmed Vital Signs Blood pressure systolic 110 mm Hg 11/16/19 24 Blood pressure diastolic 64 mm Hg 024 Heart Rate 68 /min 11/16/2023 Height 70 in 11/16/2023 Weight 171 lbs 11/16/2023 BMI 24.53 kg/m2 11/16/2023 Encounters Encounter Location Date Provider Diagnosis [facility] [address] [facility] [address] GABRIELA Dolan [id number] 11/16/2023 Nehemiah North Acute constipation K59.00 Assessments Encounter Date Diagnosis (ICD Code) Assessment Notes Treatment Notes Treatment Clinical Notes Section Notes 11/16/2023 Acute constipation (ICD-10 - K59.00) Patient to start MiraLax daily. OK to use Mag Citrate as needed Plan Of Treatment Treatment Notes Assessment Notes Acute constipation Patient to start Marc aLax daily. OK to use Mag Citrate as needed Next Appt Details Follow Up: via phone to repo rt test results, Reason: Provider Name:Nehemiahbryant Ariza ry, 08/13/2024 02:45:00 PM, [address], [address], [place], [place], [id number], Progress Notes * Julissa KONGOB: 9 (64 yo M)Acc No.[id number]:11/16/2023 Progress Notes Patient: Venus GALEANA Provider: Janusz North M.D. :1960 A ge:63 Y S ex:Male Date:11/16/2023 Address:[address] [place] [address] [address], [facility], [id number] Subjective: * Chief Complaints: * 1 . F/u kidney stone , no bowel movements. * HPI: H PI: 63 year old male presents with c/o Here for follow up on: 1 kidney stone removal and stent placement, pt had it done at [facility] in [place]. G astroenterology: c/o Constipation P t complains of constipation, states his last bm was on Sunday. * ROS: D ERMATOLOGY: no R chandan. n o H rina. G ASTROENTEROLOGY: no N ausea. n o V omiting. U ROLOGY: no D ifficulty urinating. n o B lood in urine. * Medical History: U lcerative Colitis, Hyperlipidemia, Hypertension, Kidney stones. * Surgical History: L T Foot 05/2019. * Hospitalization/Major Diagno stic Procedure: D enies Past Hospitalization. * Family History: F ather: , diagnosed with Stroke. M other: . P aternal Grand Father: . P aternal Grand Mother: , diagnosed with Diabetes. M aternal Grand Father: . M atedonna Grand Mother: . 2 sister(s) . . Sister-skin cancer. * Social History: C URRENT TOBACCO USE: No . C affeine: no, 2 cups coffee daily and 1 soda occasionally. Exercise: yes. Alcohol: no. 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 Recreational drug use: no. * Medications: T aking Tamsulosin HCl 0.4 MG Capsule 1 capsule Orally Once a day , Taking Phenazopyridine HCl 100 MG Tablet 2 tablets after meals Orally Three times a day , Taking Konsyl Original Daily Fiber , Taking Vitamin C 500 MG Capsule as directed Orally , Taking Metoprolol Succinate ER 25 MG Tablet Extended Release 24 Hour 1 tablet Orally Once a day , Taking Atorvastatin Calcium 40 MG Tablet 1 tablet Orally Once a day , Taking Mesalamine ER 0.375 GM Capsule Extended Release 24 Hour 4 capsules in the morning Orally twice a day , Taking Hair Skin Nails - Capsule as directed Orally , Taking Align - Capsule as directed Orally , Medication List reviewed and reconciled with the patient * Allergies: N .K.D.A. Objective: * Vitals: W t:171, Temp:97.9, BP:110/64, HR:68, Nurse:kk, Ht: 70, BMI:24.53. * Examination: G astroenterology: General Appearance: p leasant, NAD. O ral cavity: n ormal. S clera: a nicteric. H eart sounds: r egular, normal S1 S2. L ungs: c lear, no rales or wheezes. A bdomen: B S present, soft, nontender, no guarding or rigidity, no masses felt. Assessment: * Assessment: 1. A cute constipation - K59.00 (Primary) Plan: * Treatment: * Procedure Codes: G 2211 Complex e/m visit add on * Follow Up: v ia phone to report test results * Images: Billing Information: * Visit Code: 96555 Office Visit, Est Pt., Level 3. * Procedure Codes: G2211 Complex e/m visit add on. * Electronic signature of Silvana North MD on 08/13/2024 at 02:57 PM EDT Sign off status: Pending * Provider: Janusz North M.D. Date: Generated for Domo novak/Ayaka/Vamshismitting on: 0 08/13/2024 02:57 PM EDT History and Physical Notes * HPI (History of Present Illness) Category Sub-Category Detail Notes Category Not es Gastroenterology Constipation Pt complains of constipation, states his last bm was on Sunday HPI Here for follow up on: 4 kidney stone removal and stent placement, pt had it done at [facility] in [place] Examination Category Sub-Category Detail Notes Category Not es Gastroenterology Oral cavity: normal Sclera: anicteric Heart sounds: regular, normal S1 S 2 Lungs: clear, no rales or w heezes Abdomen: BS present, soft, no ntender, no guarding or rigidity, no masses felt General Appearance: pleasant, NAD
--- OUTSIDE RECORDS SUMMARY | 2024-08-13 14:57 | XMS_ITS ---
Author Organization Unknown Medications Date Medication Dosage DosageUnit StartDate StopDate StopReason Active DoseQuantity DoseUnit Dispense DispenseUnit Refills NdcCode DrugCode PharmacyId IsPrescription MappedMedication Srcstatus Custom 08/13 00:00 :00 Align - Capsule 1 [id number] 343 Taking 03/18 00:00 :00 Align - Capsule 1 [id number] 343 Taking 11/15 00:00 :00 Align - Capsule 1 [id number] 343 Taking 08/13 00:00 :00 Atorvastati n Calcium 40 MG Tablet 1 30 000 60936 810 Taking 03/18 00:00 :00 Atorvastati n Calcium 40 MG Tablet 1 30 000 05723 810 Taking 11/15 00:00 :00 Atorvastati n Calcium 40 MG Tablet 1 30 000 11677 810 Taking 08/13 00:00 :00 Azithromyci n 250 MG Tablet 0 736608 37 020 Discontinu ed 03/18 00:00 :00 Azithromyci n 250 MG Tablet 1 348410 37 020 Taking 08/13 00:00 :00 Benzonatate 100 MG Capsule 0 009 77850 460 Discontinu ed 03/18 00:00 :00 Benzonatate 100 MG Capsule 1 009 62094 460 Taking 08/13 00:00 :00 Hair Skin Nails - Capsule 1 315630 10 211 Taking 03/18 00:00 :00 Hair Skin Nails - Capsule 1 268448 10 211 Taking 11/15 00:00 :00 Hair Skin Nails - Capsule 1 610410 10 211 Taking 08/13 00:00 :00 Konsyl Original Daily Fiber 1 Taki ng 03/18 00:00 :00 Konsyl Original Daily Fiber 1 Taki ng 11/15 00:00 :00 Konsyl Original Daily Fiber 1 Taki ng 08/13 00:00 :00 Medrol 4 MG Tablet Therapy Pack 0 [id number] 604 Discontinu ed 03/18 00:00 :00 Medrol 4 MG Tablet Therapy Pack 1 [id number] 604 Taking 08/13 00:00 :00 Mesalamine ER 0.375 GM Capsule Extended Release 24 Hour 1 [id number] 219 Taking 03/18 00:00 :00 Mesalamine ER 0.375 GM Capsule Extended Release 24 Hour 1 [id number] 219 Taking 11/15 00:00 :00 Mesalamine ER 0.375 GM Capsule Extended Release 24 Hour 1 [id number] 219 Taking 08/13 00:00 :00 Metoprolol Succinate ER 25 MG Tablet Extended Release 24 Hour 1 30 [id number] 510 Taking 03/18 00:00 :00 Metoprolol Succinate ER 25 MG Tablet Extended Release 24 Hour 1 30 49841003 510 Taking 11/15 00:00 :00 Metoprolol Succinate ER 25 MG Tablet Extended Release 24 Hour 1 30 [id number] 510 Taking 08/13 00:00 :00 Phenazopyri dine HCl 100 MG Tablet 1 12 101 67196 001 Taking 03/18 00:00 :00 Phenazopyri dine HCl 100 MG Tablet 1 12 101 42315 001 Taking 11/15 00:00 :00 Phenazopyri dine HCl 100 MG Tablet 1 12 101 90408 001 Taking 08/13 00:00 :00 Promethazin e-DM 6.25-15 MG/5ML Syrup 03/18/2024 00:00:00 0 473 mL 0 [id number] 5 701 P Discontinu ed 03/18 00:00 :00 Promethazin e-DM 6.25-15 MG/5ML Syrup 03/18/2024 00:00:00 1 473 mL 0 [id number] 5 701 P Start 08/13 00:00 :00 Tamsulosin HCl 0.4 MG Capsule 1 30 67866 601 Taking 03/18 00:00 :00 Tamsulosin HCl 0.4 MG Capsule 1 30 601 Taking 11/15 00:00 :00 Tamsulosin HCl 0.4 MG Capsule 1 30 62454 207 601 Taking 08/13 00:00 :00 Vitamin C 500 MG Capsule 1 50115 002 509 Taking 03/18 00:00 :00 Vitamin C 500 MG Capsule 1 48462 002 509 Taking 11/15 00:00 :00 Vitamin C 500 MG Capsule 1 24953 002 509 Taking
--- NOTE | 2024-08-13 14:58 | XR_ITS ---
FINAL REPORT CLINICAL HISTORY: LEFT WRIST PAIN FINDINGS: LEFT WRIST Three views demonstrate no acute fracture or dislocation. Moderate hypertrophic changes are seen at the basilar joint. The visualized joint spaces are normally aligned. The soft tissues are unremarkable. IMPRESSION: No acute bony abnormality. Reviewed, Interpreted and Dictated by Gus Arauz MD Transcribed by Noemi Arzate Authenticated and [facility]
== END 2024-08-13 23:59 | disposition home or self-care (01) ==
LOC: RAD 14:55
PROVIDERS: PCP Family Medicine; Visit Provider Family Medicine
DX: M25.532 Pain in left wrist (principal)
CPT/HCPCS: 73110

== ENCOUNTER 2024-09-18 10:40 | Day surgery (SDC) | payer MEDICARE, BC, OTHER, SELFPAY ==
[2024-09-17 08:52] VITALS: BMI 24.3
--- NOTE | 2024-09-17 14:55 | P.HP_ITS ---
History of Present Illness *Admission Date: 09/18/24 *History of present illness: Mr. Ferrer is a 64-year-old gentleman who is here for diagnostic colonoscopy. He had seen me previously for a colonoscopy in January 2020. He does have a long history of ulcerative proctocolitis diagnosed in 1980. He has been followed by myself and the [facility] in [place] (Carmelina Morrison MD). His colonoscopy in 2016 was reportedly normal. His colonoscopy with me in January 2020 showed minimal ulcerative proctitis of the distal 2 to 3 cm of rectum. His colonoscopy with Carmelina Morrison in September 2022 showed moderately active proctocolitis but the report is a little confusing and that it does not state location and patient states that after the exam he was told that he had minimal proctitis. He is not on any maintenance of remission therapy. The patient does state that more recently he has had a change in his bowel habits with blood and mucus. Formerly he would have symptoms of tenesmus with flareups of blood and mucus. He states that this is different and he sometimes has to strain to have a bowel movement with incomplete defecation and excessive wiping. His bowel movements are formed but sometimes normal or small caliber. He has bought a bidet to use. He reports no abdominal pain or weight loss. [facility] Disclaimer: The information contained in this section may have been updated after the patient was seen, as this information can be updated by other users. Medical History Hypertension Ulcerative colitis HLD (hyperlipidemia) CAD (coronary artery disease) Endothelial dysfunction of coronary artery Surgical History History of foot surgery Family History Other Family history non-contributory Social History (Updated 09/18/24 @ 11:43 by Sabina Bingham RN) Smoking Status: Never smoker second hand exposure: No alcohol intake: never substance use type: denies use current occupational status: retired Travel in the last 8 weeks?: [place] the [place] household members: spouse housing: house current occupational exposures/hazards: No caffeine: Yes Have you lived/traveled outside US in past 30 days?: No Contact w/someone who lives/traveled outside US past 30 days?: No Exposure to someone with infectious disease in past 14 days?: No Do you have a fever (greater than 100.4 F or 38 C)?: No Have you tested positive for COVID-19?: No Exposed to someone with COVID-19 in past 14 days?: No Do you have a sore throat?: No Do you have a cough?: No Do you have any weakness?: No Are you experiencing any nausea/vomitting?: No Do you have any diarrhea?: No Are you experiencing any unusual bleeding?: No Do you have any muscle aches/pain?: No Do you have any abdominal pain?: No Are you experiencing loss of taste or smell?: No Other Medical History Have you received the Flu Vaccine for this season: No Have you received the Pneumonia Vaccine: No Review of Systems Review of Systems Review of systems (narrative): Negative *Cardiovascular Comments: Negative *Gastrointestinal Comments: Negative *Genitourinary Comments: Negative *Musculoskeletal Comments: Negative *Neurologic Comments: Negative Meds Home Medications and Allergies Home Medications ?Medication ?Instructions ?Recorded ?Confirmed ?Type mesalamine 0.375 gram 4 tab PO BID ULCERATIVE COLI TIS 11/28/19 09/09/24 History capsule,extended release 24 hr atorvastatin 40 mg tablet 40 mg PO DAILY Cholesterol 1 03/22/19 09/09/24 History metoprolol succinate 25 mg 12.5 mg PO DAILY Hypertensi on 01/20/20 09/09/24 History tablet,extended release 24 hr coenzyme Q10 60 mg tablet 400 mg PO DAILY 09/09/2406/29 History mecobalamin (vitamin B12) 1,000 1,000 mcg PO DAILY 06/2909/09/24 History mcg chewable tablet mesalamine 1,000 mg rectal 1 g MO HS 30 days #30 ea 09/09/24 Rx suppository (Canasa) sodium,potassium,mag sulfates 17.5 See Rx Instructions PO .COMPLEX 09/10/24 Rx gram-3.13 gram-1.6 gram oral soln #354 mL (Suprep Bowel Prep Kit) New Prescriptions to Start Prescriptions: Allergies Allergy/AdvReac Type Severity Reaction Status Date / Time No Known Drug Allergies Allergy Unknown Verified 09/09/24 08:14 (NKDA) Exam Data for Last 24 hours I & O for Last 24 hours: Intake & Output 09/14/24 09/15/24 09/16/24 09/17/24 23:59 23:59 23:59 23:59 Weight 170 lb *Routine HEENT Exam Head: Present normocephalic Eye: Present EOMI and PERRL ENT: Present mucous membranes moist *Routine Neck Exam Neck: Present supple *Routine Respiratory Exam Respiratory: Present CTA bilaterally *Routine Cardiovascular Exam Cardiovascular: Present RRR *Routine Abdominal Exam Abdominal: Present soft and normoactive bowel sounds; Absent tenderness *Routine Rectal Exam Rectal:: deferred *Routine Genitalia Exam Genitalia:: deferred *Routine Extremities Exam Extremities: Absent cyanosis, clubbing or edema *Routine Skin Exam Skin: Present warm; Absent rash *Routine Neurological Exam Neurological: Present alert and oriented X3 Assessment and Plan *Assessment and plan (1) Bright red rectal bleeding: Status: Acute Category: Medical Code(s): K62.5 - Hemorrhage of anus and rectum (2) Mucus in stool: Status: Acute Category: Medical Code(s): R19.5 - Other fecal abnormalities (3) Incomplete defecation: Status: Acute Category: Medical Code(s): R15.0 - Incomplete defecation (4) Ulcerative proctitis: Status: Acute Category: Medical Code(s): K51.20 - Ulcerative (chronic) proctitis without complications Plan A/P: 1. Bright red rectal bleeding with mucus in stool is the preprocedural diagnosis. He does have a history of ulcerative proctitis and does feel incomplete defecation. The patient will be anesthetized/sedated using MAC sedation. The patient has been seen and examined. Cardiac and lung assessment prior to the examination is stable. Proceed with planned diagnostic colonoscopy.
[2024-09-18 11:39] VITALS: BP 139/75; PULSE 72; RESP 18; TEMP 36.2; O2SAT 99; BMI 24.3
[2024-09-18] MEDS: LACTATED RINGERS 1000ML 1,000 ML 50 ML IV (11:57)
--- NOTE | 2024-09-18 12:00 | P.PNANES_ITS ---
[facility] Disclaimer: The information contained in this section may have been updated after the patient was seen, as this information can be updated by other users. Medical History Hypertension Ulcerative colitis HLD (hyperlipidemia) CAD (coronary artery disease) Endothelial dysfunction of coronary artery Surgical History History of foot surgery Family History Other Family history non-contributory Social History (Updated 09/18/24 @ 11:43 by Sabina Bingham RN) Smoking Status: Never smoker second hand exposure: No alcohol intake: never substance use type: denies use current occupational status: retired Travel in the last 8 weeks?: Inside the [place] household members: spouse housing: house current occupational exposures/hazards: No caffeine: Yes Have you lived/traveled outside [place] in past 30 days?: No Contact w/someone who lives/traveled outside [place] past 30 days?: No Exposure to someone with infectious disease in past 14 days?: No Do you have a fever (greater than 100.4 F or 38 C)?: No Have you tested positive for COVID-19?: No Exposed to someone with COVID-19 in past 14 days?: No Do you have a sore throat?: No Do you have a cough?: No Do you have any weakness?: No Are you experiencing any nausea/vomitting?: No Do you have any diarrhea?: No Are you experiencing any unusual bleeding?: No Do you have any muscle aches/pain?: No Do you have any abdominal pain?: No Are you experiencing loss of taste or smell?: No [facility] Anesthesia Checklist Patient Identification Patient Identification: Arm Band Structural Data Admitted From: Home Planned Operative Procedure/s: Colonoscopy Consent for Planned Operative Procedure(s) Verified: Yes Verified Documents: Surgical Consent and History and Physical NPO Status Verified Time NPO: 08:00 (finished prep) Additional verifications Anesthesia Reactions: No Hx Blood Transfusions: No Blood Transfusion Reaction: No Airway Assessment Mallampati Score:: Class II C-Spine Mobility Assessed: Yes TMJ Mobility Assessed: Yes Dentition: Good Dentition Neurological Assessment Level of Consciousness: Awake, Alert and Appropriate Anesthesia Plan Anesthesia Risk discussed: Yes Anesthesia Plan: Verified ASA Class: II Anesthesia Type: MAC
--- NOTE | 2024-09-18 12:24 | P.PCN_ITS ---
[facility] Procedure Note Date: 09/18/24 Time: 12:38 Procedure Note:: Colonoscopy Procedure Report: Colonoscopy with cold snare polypectomy and cold biopsies Endoscopist: Mj Woo II, MD Referring physician: Nehemiah North MD Date of Procedure: September 18, 2024 Equipment: Olympus [id number] adult colonoscope Sedation: MAC sedation Indication: Mr. Ferrer is a 64-year-old gentleman who is here for diagnostic colonoscopy. He had seen [facility] previously for a colonoscopy in January 2020. He does have a long history of ulcerative proctocolitis diagnosed in 1980. He has been followed by myself and the [facility] in [place] (Carmelina Morrison MD). His colonoscopy in 2016 was reportedly normal. His colonoscopy with ny in January 2020 showed minimal ulcerative proctitis of the distal 2 to 3 cm of rectum. His colonoscopy with Carmelina Morrison in September 2022 showed moderately active proctocolitis but the report is a little confusing and that it does not state location and patient states that after the exam he was told that he had minimal proctitis. He is not on any maintenance of remission therapy. The patient does state that more recently he has had a change in his bowel habits with blood and mucus. Formerly he would have symptoms of tenesmus with flareups of blood and mucus. He states that this is different and he sometimes has to strain to have a bowel movement with incomplete defecation and excessive wiping. His bowel movements are formed but sometimes normal or small caliber. He has bought a bidet to use. He reports no abdominal pain or weight loss. Procedure: Prior to the procedure, a history and physical exam was performed, and patient's medications and allergies were reviewed. The risks, benefits and alternatives of the sedation and procedure were discussed with the patient. All questions were answered and informed consent was obtained. The patient was brought to the procedure room. Patient identification and proposed procedure were verified by the physician and the nurse. The patient was placed in a left lateral decubitus position and the scope was passed under direct vision. Throughout the procedure, the patient's blood pressure, pulse, and oxygen saturations were monitored continuously. The colonoscopy was accomplished without difficulty. The patient tolerated the procedure well. Findings: On digital rectal examination there was normal rectal tone. There were no external hemorrhoids. The colonoscope was introduced through the anal canal to the rectum and advanced to the cecum. The ileocecal valve and appendiceal orifice were identified. The scope was advanced a short distance into the ileum which appeared grossly normal. The scope was then withdrawn into the colon. The cecum was normal. There was a diminutive 4 mm polyp in the ascending colon removed via cold snare polypectomy. The remainder of the ascending, transverse, descending and sigmoid colon were normal. Within the distal rectum there was circumferential mucosal granularity, erythema, edema and loss of vascular pattern consistent with moderate ulcerative proctitis. This extended 4 to 5 cm from the anal verge. Cold biopsies were obtained. The preparation was excellent throughout with [place] Preparation Score of 9. The cecal time was 12 minutes. Impression: 1. Moderate chronic ulcerative proctitis (extending 4 to 5 cm from anal verge) 2. Diminutive ascending colon polyp Plan: I will discuss the findings with the patient and family. I would consider Velsipity as a treatment for induction of remission and maintenance of his moderate chronic ulcerative proctitis. Velsipity is a once daily therapy and would provide safe long-term therapy and remission.
[2024-09-18 12:41] VITALS: BP 96/58; PULSE 76; RESP 18; TEMP 36.1; O2SAT 98
[2024-09-18 12:51] VITALS: BP 107/57; PULSE 68; RESP 17; O2SAT 98
[2024-09-18 13:01] VITALS: BP 109/62; PULSE 70; RESP 18; O2SAT 98
[2024-09-18 13:11] VITALS: BP 119/63; PULSE 66; RESP 17; O2SAT 98
== END 2024-09-18 13:20 | disposition home or self-care (01) ==
PROVIDERS: PCP Family Medicine; Visit Provider Internal Medicine Gastroenterology
PROC: 0DJD8ZZ Inspection of Lower Intestinal Tract, Via Natural or Artificial Opening Endoscopic (ICD-10-PCS; CPT 45378; principal; 2024-09-18 12:30)
DX: D12.2 Benign neoplasm of ascending colon (principal); K52.9 Noninfective gastroenteritis and colitis, unspecified; K51.20 Ulcerative (chronic) proctitis without complications; I25.10 Atherosclerotic heart disease of native coronary artery without angina pectoris; E78.5 Hyperlipidemia, unspecified; I10 Essential (primary) hypertension; F17.210 Nicotine dependence, cigarettes, uncomplicated
CPT/HCPCS: 45380; 45385; J2003; J2704; J7120